=== PATIENT | female | born 2000 | race Caucasian/White ===

== ENCOUNTER 2025-04-19 20:39 | Emergency (ER) | payer BC, OTHER ==
--- OUTSIDE RECORDS SUMMARY | 2025-04-19 20:46 | XMS REPORT | Continuity of Care Document ---
Author Name Unknown Address [address] [facility] [address] [place] [address] [facility] Address [address] [facility] [address] [place] [address] Care Team Providers Care Clinical Nursing Director Name Role Phone Fartun Leo MD Primary Care Physician [phone] BETY DELGADO Attending Clinician Unavailable Bety Delgado PA-C Attending Clinician [phone] Unknown, Attending Attending Clinician Unavailab GARRETT Jeffers Attending Clinician Unavailable Fartun Leo MD Attending Clinician [phone] Nikki Raygoza MD Attending Clinician [phone] NIKKI RAYGOZA Attending Clinician Unavailable NIKKI RAYGOZA Attending Clinician Unavailable CARON DUKE Attending Clinician Unavailable CARON DUKE Attending Clinician Unavailable FARTUN LEO Attending Clinician Unavailable FARTUN LEO Attending Clinician Unavailable Danuta Roberson Attending Clinician Unavailable Jozef Agee Attending Clinician Unavailable Doctor Unassigned, Borden Attending Clinician U KATHLEEN Nixon Attending Clinician Unavailab Kathleen Navarro DO Attending Clinician [phone] Sarah Maynard RN Attending Clinician Unavailable NAINA POLLARD Attending Clinician Unavaila ble 2, [facility] Attending Clinician Unavailable Hiram Franks Attending Clinician [phone] Unknown, Attending Attending Clinician Unavailab HIRAM Velasquez Attending Clinician Unavailable ORION DEAN Attending Clinician Unavailable Orion Dean DO Attending Clinician [phone] 1, [facility] Room Attending Clinician UnavailErnie Marshall MD Attending Clinician + [phone] ERNIE IBRAHIM Attending Clinician UnavailRUTHIE Posada Attending Clinician Unavailable Ruthie Parker MD Attending Clinician [phone] YOLANDA NAM Attending Clinician Unavailable YOLANDA NAM Attending Clinician Unavailable Yolanda Nam MD Attending Clinician [phone] GUNNAR MARTÍNEZ Attending Clinician Unavailable Nyla Barker RN Attending Clinician Karen vailable DARCY BECKWITH Attending Clinician Unavailable Darcy Beckwith NP Attending Clinician [phone] BRIA LUAN Attending Clinician Unavailable ANIL ROBIN Attending Clinician Unavailable Robin PAC Anil S Attending Clinician [phone] MICHEAL TATUM Attending Clinician Unavailable Micheal Davis Attending Clinician [phone] Bria Luna MD Attending Clinician [phone] Lab, Ang - Db Attending Clinician Unavailable Marivel SAMANIEGO Attending Clinician Unavailable Marivel Sevilla Attending Clinician [phone] Gunnar Martínez PA-C Attending Clinician [phone] Danuta Roberson Admitting Clinician Unavailable ORION DEAN Admitting Clinician Unavailable RUTHIE PARKER Admitting Clinician Unavailable DARCY BECKWITH Admitting Clinician Unavailable MICHEAL TATUM Admitting Clinician Unavailable Marivel SAMANIEGO Admitting Clinician Unavailable Payers Payer Name Policy Type Policy Number Effective Date Expirati on Date Source [employer] [place] - OUT OF STATE [id number] 2018 00:00:00 [facility] [id number] 2024 00:00:00 [employer] [id number] 2021 00:00:00 2022 00:00:00 Problems Condition Name Condition Details Condition Category Status Onset Date Resolution Date Last Treatment Date Treating Clinician Comments Source PCOS (polycysti c ovarian syndrome) PCOS (polycysti c ovarian syndrome) Disease Active 2023-07 00:00: 00 [facility] Dysuria Dysuria Disease Active 2023-07 00:00: 00 [facility] Migraine Migraine Disease Active 03-16 00:00: 00 [facility] Asthma Asthma Disease Active 03-16 00:00: 00 [facility] Anxiety Anxiety Disease Active 03-16 00:00: 00 [facility] Depression Depression Disease Active 03-16 00:00: 00 [facility] Anemia Anemia Disease Active 03-16 00:00: 00 Overview: Formattin g of this note might be different from the original. as a child [facility] Class 3 severe obesity in adult Class 3 severe obesity in adult Disease Active 08-27 00:00: 00 [facility] Obesity (BMI 30-39.9) Obesity (BMI 30-39.9) Disease Active 08-27 00:00: 00 [facility] Amplified musculoske letal pain, diffuse Amplified musculoske letal pain, diffuse Disease Active 2015-07 00:00: 00 [facility] Syncope and collapse Syncope and collapse Disease Active 07-21 00:00: 00 [facility] Chest pain Chest pain Disease Active 07-21 00:00: 00 Overview: Formattin g of this note might be different from the original. ICD10 Diagnosis Term Art Preparator Utility [facility] Palpitatio n Palpitatio n Disease Active 07-21 00:00: 00 [facility] SOB (shortness of breath) SOB (shortness of breath) Disease Active 2012-0 1-18 00:00: 00 [facility] Missed Missed Disease Resolve d 2022-0 5-03 00:00: 00 2023-05-03 00:00:00 2023-05-03 14:47:09 [facility] Vaginal bleeding Vaginal bleeding Disease Resolve d 2022-0 5-03 00:00: 00 2022-11-12 00:00:00 2022-11-12 14:05:52 [facility] High-risk in first trimester High-risk in first trimester Disease Resolve d 2022-0 4-18 00:00: 00 2022-11-12 00:00:00 2022-11-12 14:05:58 [facility] Anxiety in in first trimester, antepartum Anxiety in in first trimester, antepartum Disease Resolve d 0 3-03 00:00: 00 2022-11-12 00:00:00 2022-11-12 14:05:55 [facility] Less than 8 weeks gestation of Less than 8 weeks gestation of Disease Resolve d 2022-0 3-03 00:00: 00 2022-11-12 00:00:00 2022-11-12 14:06:01 [facility] Obesity affecting in first trimester Obesity affecting in first trimester Disease Resolve d 0 3-03 00:00: 00 2022-11-12 00:00:00 2022-11-12 14:06:02 [facility] Allergies, Adverse Reactions, Alerts Allergy Name Allergy Type Status Severity Reaction(s) Onset Date Inactive Date Treating Clinician Comments Source diphenhy dramine DA Active [place] 12-21 00:00: 00 [facility] metoclop ramide DA Active [place] AGGRESIVE 12-21 00:00: 00 [facility] metoclop ramide DA Active [place] AGGR[place] 6- 00:00: 00 [facility] diphenhy dramine DA Active [place] 6- 00:00: 00 [facility] metoclop ramide DA Active [place] AGGRES[place] 09-20 00:00: 00 [facility] diphenhy dramine DA Active [place] 09-20 00:00: 00 [facility] Benadryl Allergy Deconges tant Propensi ty to adverse reaction s Active Other - See comments 07-26 00:00: 00 Kidney Failure [facility] BENADRYL ALLERGY DECONGES TANT DRUG Active Other-Cmnt 07-26 00:00: 00 [facility] Metoclop ramide Hcl Propensi ty to adverse reaction s Active Hallucinatio ns 03-12 00:00: 00 [facility] Metoclop ramide Propensi ty to adverse reaction s Active Unknown - See comments 03-12 00:00: 00 Other reaction( s): Hallucina tions [facility] METOCLOP RAMIDE DRUG INGREDI Active Unknown-Cmnt 03-12 00:00: 00 [facility] METOCLOP RAMIDE HCL DRUG INGREDI Active Hallucinates 03-12 00:00: 00 [facility] Family History Family Member Diagnosis Comments Start Date Stop Date Sourc e Natural brother [facility] brother ADHD [facility] Natural brother Other - see comments [facility] Natural [facility] Natural father High cholesterol [facility] Natural father Hypertension [facility] Maternal grandmother COPD (chronic obstructive pulmonary disease) [facility] Maternal grandmother Emphysema [facility] Natural mother Depression [facility] Natural mother Fibromyalgia [facility] Natural mother Other - see comments [facility] Natural mother Psychiatry [facility] Paternal uncle [facility] Natural sister [facility] Social History Social Habit Start Date Stop Date Quantity Comments Source ASSERTION 2022-08-04 00:00:00 [facility] Gender identity [facility] Alcoholic beverage intake 2024-08-29 00:00:00 2024-08-29 00:00:00 0 /d [facility] History of Social function 2024-06-08 00:00:00 2024-06-08 00:00:00 [facility] Alcohol intake 2023-05-27 00:00:00 2023-05-27 00:00:00 0 /d [facility] Tobacco use and exposure 2023-05-03 00:00:00 2023-05-03 00:00:00 Smokeless tobacco non-user [facility] Exposure to SARS-CoV-2 (event) 2022-11-09 00:00:00 2022-11-19 13:11:00 Not sure [facility] Sex assigned at 2002 00:00:00 2000 00:00:00 [facility] Smoking Status Start Date Stop Date Source Never smoked tobacco [facility] Medications Ordered Medication Name Filled Medication Name Start Date Stop Date Current Medication? Ordering Clinician Indication Dosage Frequency Signature (SIG) Comments Components Source dexamethaso ne (DECADRON) injection 10 mg 08-29 21:15: 00 08-29 20:25 :00 No [id number] 10mg 10 mg, Intramuscu lar, ONCE, 1 dose, On Tue08/29/24 at 1515, Routine [facility] bromphenira mine-pseudo ephedrine-D M (BROMFED DM) 2-30-10 mg/5 mL syrup 08-18 00:00: 00 Yes [id number] 5mL Take 5 mL by mouth 3 (three) times daily as needed for Cold symptoms. [facility] amoxicillin 500 mg tablet 08-18 00:00: 00 08-29 05:59 :00 No [id number] 500mg Take 1 tablet by mouth in the morning and 1 tablet in the evening. Do all this for 10 days. [facility] sulfamethox azole-trime thoprim (BACTRIM DS) 800-160 mg per tablet 2023-07 00:00: 00 06-16 05:59 :00 No 1{tbl} Take 1 tablet by mouth in the morning and 1 tablet in the evening. Do all this for 7 days. [facility] Nitrofurant oin&Nit. Macrocryst 100 mg capsule 2022-07 00:00: 00 05-14 05:59 :00 No [id number] 100mg Take 1 capsule by mouth in the morning and 1 capsule in the evening. Do all this for 7 days. [facility] methylPREDN ISolone (MEDROL, TATYANA,) 4 mg tablets 03-16 00:00: 00 05-03 00:00 :00 No [id number] Take by mouth SEE-INSTRU CTIONS. follow package directions [facility] promethazin e-dextromet horphan 6.25-15 mg/5 mL syrup 03-16 00:00: 00 03-27 04:59 :00 No [id number] 5mL Take 5 mL by mouth 4 (four) times daily for 10 days. [facility] busPIRone 5 mg tablet 02-25 11:06: 16 02-25 00:00 :00 No 5mg Take 1 tablet by mouth in the morning and 1 tablet in the evening. [facility] ARIPiprazol e 5 mg tablet 02-25 11:06: 13 02-25 00:00 :00 No 5mg Take 1 tablet by mouth in the morning. [facility] escitalopra m oxalate 10 mg tablet 02-25 11:05: 47 02-25 00:00 :00 No 10mg Take 1 tablet by mouth in the morning. [facility] azithromyci n 500 mg tablet 02-25 00:00: 00 05-03 00:00 :00 No [id number] 500mg Take 1 tablet by mouth in the morning. [facility] doxycycline hyclate 100 mg tablet 11-12 00:00: 00 02-25 00:00 :00 No [id number] 100mg Take 1 tablet by mouth in the morning and 1 tablet in the evening. [facility] miSOPROStoL (CYTOTEC) tablet 800 mcg 11-02 17:00: 00 11-02 16:03 :00 No [id number] 800ug [facility] ibuprofen 800 mg tablet 11-02 00:00: 00 02-25 00:00 :00 No [id number] 800mg Take 1 tablet by mouth every 8 (eight) hours as needed (Pain). [facility] miSOPROStoL 200 mcg tablet 11-02 00:00: 00 11-03 04:59 :00 No [id number] 800ug Take 4 tablets by mouth once now for 1 dose. [facility] acetaminoph en (TYLENOL) tablet 1,000 mg 10-31 00:30: 00 10-30 23:32 :00 No 1000mg 1,000 mg, Oral, ONCE, 1 dose, On 10/30/22 at 1930, Routine [facility] foLIC acid 1 mg tablet 10-20 00:00: 00 02-25 00:00 :00 No [id number] 1mg Take 1 tablet by mouth in the morning. [facility] ferrous sulfate (SLOW RELEASE IRON) 140 mg (45 mg iron) TbSR 10-20 00:00: 00 02-25 00:00 :00 No [id number] 1{tbl} Take 1 tablet by mouth in the morning. [facility] ARIPiprazol e 5 mg tablet 10-19 10:57: 32 Yes 5mg Take 1 tablet by mouth in the morning. [facility] escitalopra m oxalate 10 mg tablet 10-19 10:57: 32 Yes 10mg Take 1 tablet by mouth in the morning. [facility] busPIRone 5 mg tablet 18 10:57: 32 Yes 5mg Take 1 tablet by mouth in the morning and 1 tablet in the evening. [facility] ARIPiprazol e 5 mg tablet 09-16 16:03: 15 Yes 5mg Take 1 tablet by mouth in the morning. [facility] escitalopra m oxalate 10 mg tablet 09-16 16:03: 15 Yes 10mg Take 1 tablet by mouth in the morning. [facility] busPIRone 5 mg tablet 09-16 16:03: 15 Yes 5mg Take 1 tablet by mouth in the morning and 1 tablet in the evening. [facility] ARIPiprazol e (ABILIFY) 5 mg tablet 09-03 18:00: 45 Yes 5mg Take 5 mg by mouth in the morning. [facility] escitalopra m oxalate (LEXAPRO) 10 mg tablet 09-03 18:00: 44 Yes 10mg Take 10 mg by mouth in the morning. [facility] busPIRone 5 mg tablet 09-03 18:00: 44 Yes 5mg Take 5 mg by mouth in the morning and 5 mg in the evening. [facility] etonogestre L 68 mg implant 08-26 17:36: 27 08-26 00:00 :00 No 68mg 68 mg by Subdermal route once now. [facility] Lactobac no.41/Bifid obact no.7 (PROBIOTIC- 10 ORAL) 08-26 17:31: 57 08-26 00:00 :00 No 1{each} Take 1 Each by mouth. [facility] cetirizine 10 mg tablet 08-26 17:31: 51 08-26 00:00 :00 No 10mg Take 10 mg by mouth in the morning. [facility] hydrOXYzine 25 mg capsule 2021-07 00:00: 00 02-25 00:00 :00 No [facility] cefTRIAXone (ROCEPHIN) 1,000 mg in NaCl 0.9% (NS) 50 mL MINI-BAG 2021-07 17:00: 00 05-19 17:31 :00 No 1000mg 1,000 mg, IV Piggyback, ONCE, 1 dose, On Tue05/19/22 at 1100, Administer over 30 Minutes, 50 mL
Reas on for Anti-Infec tive: Documented Infection< br>Documen nicholas Infection Site: Urine
D uration of Therapy: 7 days [facility] NaCl 0.9% (NS) bolus infusion 1,000 mL 2021-07 17:00: 00 05-19 18:31 :00 No 1000mL at 999 mL/hr, 1,000 mL, IV Infusion, ONCE, 1 dose, On Tue05/19/22 at 1100, AJAY [facility] ketorolac (TORADOL) injection 30 mg 2021-07 16:30: 00 05-19 16:40 :00 No 30mg 30 mg, Slow IV Push, ONCE, 1 dose, On Tue05/19/22 at 1030, Routine [facility] ondansetron (ZOFRAN (PF)) injection 4 mg 2021-07 16:30: 00 05-19 16:40 :00 No 4mg 4 mg, Slow IV Push, ONCE, 1 dose, On Tue05/19/22 at 1030, [facility] phenazopyri dine 200 mg tablet 2021-07 00:00: 00 08-26 00:00 :00 No [id number] 200mg Take 1 tablet by mouth in the morning and 1 tablet at noon and 1 tablet in the evening. [facility] ondansetron 4 mg disintegrat ing tablet 2021-07 00:00: 00 08-26 00:00 :00 No [id number] 4mg Take 1 tablet by mouth every 8 (eight) hours as needed for Nausea and Vomiting (N/V). [facility] cefdinir 300 mg capsule 2021-07 00:00: 00 05-30 05:59 :00 No [id number] 300mg Take 1 capsule by mouth every 12 (twelve) hours for 10 days. [facility] Lactobac no.41/Bifid obact no.7 (PROBIOTIC- 10 ORAL) 2021-07 15:29: 14 Yes 1{each} Take 1 Each by mouth. [facility] cetirizine 10 mg tablet 2021-07 15:29: 14 Yes 10mg Take 10 mg by mouth in the morning. [facility] ARIPiprazol e (ABILIFY) 5 mg tablet 2021-07 15:29: 14 Yes 5mg Take 5 mg by mouth in the morning. [facility] escitalopra m oxalate (LEXAPRO) 10 mg tablet 2021-07 15:29: 14 Yes 10mg Take 10 mg by mouth in the morning. [facility] busPIRone 5 mg tablet 2021-07 15:29: 14 Yes 5mg Take 5 mg by mouth in the morning and 5 mg in the evening. [facility] cetirizine 10 mg tablet 2021-07 10:23: 35 Yes 10mg Take 10 mg by mouth in the morning. [facility] mupirocin 2 % ointment 2021-07 0 00:00: 00 08-26 00:00 :00 No [id number] Apply to area(s) 2 (two) times daily. Use until resolution of symptoms (normally 4-8 weeks) [facility] Lactobac no.41/Bifid obact no.7 (PROBIOTIC- 10 ORAL) 03-16 11:43: 39 Yes 1{each} Take 1 Each by mouth. [facility] norethindro ne-ethinyl estradiol-i christian 1 mg-20 mcg(24) /75 mg (4) per tablet 03-16 11:42: 54 03-16 00:00 :00 No 1{tbl} Take 1 tablet by mouth. [facility] mupirocin (BACTROBAN) 2 % ointment 03-16 11:42: 42 03-16 00:00 :00 No Apply to area(s). [facility] cetirizine (ZYRTEC) 10 mg tablet 03-16 11:42: 24 03-16 00:00 :00 No Take by mouth. [facility] acetaminoph en (TYLENOL) 325 mg tablet 03-16 11:42: 23 03-16 00:00 :00 No Take by mouth every 6 (six) hours as needed. [facility] FLUoxetine 40 mg capsule 03-16 11:22: 27 03-16 00:00 :00 No 40mg Take 40 mg by mouth daily. [facility] albuterol 90 mcg/actuati on inhaler 03-16 00:00: 00 08-26 00:00 :00 No [id number] 2{puff} Inhale 2 Puffs every 6 (six) hours as needed for Wheezing or Shortness of Breath. [facility] etonogestre L 68 mg implant 08-27 13:28: 01 Yes 68mg 68 mg by Subdermal route once now. [facility] albuterol 90 mcg/actuati on inhaler 08-27 00:00: 00 03-16 00:00 :00 No [id number] 2{puff} Inhale 2 Puffs every 6 (six) hours as needed for Wheezing or Shortness of Breath. [facility] traMADOL (ULTRAM) 50 mg tablet 2017-0716 00:00: 00 03-16 00:00 :00 No 50mg Take 1 tablet by mouth every 6 (six) hours as needed for Pain (scale 4-6). [facility] ibuprofen (MOTRIN IB) 200 mg tablet 3-05 00:00: 00 03-16 00:00 :00 No 400mg Take 2 tablets by mouth every 6 (six) hours as needed for Pain (scale 1-3) for up to 30 doses. [facility] traMADOL (ULTRAM) 50 mg tablet 03-12 00:00: 00 03-16 00:00 :00 No 50mg Take 1 tablet by mouth every 6 (six) hours as needed for Pain (scale 4-6). Bruno Arias PA-C / Beryl Melvin MD YUAN# [id number] [facility]# [id number] x [facility].# [id number] [facility]# [id number] [facility] Immunizations Ordered Immunization Name Filled Immunization Name Date Status Comments Source Influenza Virus Vaccine - Whole 2011-07-09 00:00:00 Completed Influenza Virus Vaccine - Whole 2010-04-24 00:00:00 Completed HEPATITIS A 2008-02-22 00:00:00 Completed DTaP, Unspecified Formulation 2007-02-07 00:00:00 Completed HEPATITIS A 2007-02-07 00:00:00 Completed Proquad (MMR/VARICELLA) 2007-02-07 00:00:00 Completed Pneumococcal 7 Conjugate, PCV7 (Prevnar7) 2007-02-07 00:00:00 Completed IPV 2007-02-07 00:00:00 Completed Hep B, Adol or Pedi Dosage 2005-03-11 00:00:00 Completed DTaP, Unspecified Formulation 2004-07-20 00:00:00 Completed [facility] HIB 4 Dose Schedule 2004-07-20 00:00:00 Completed MMR 2004-07-20 00:00:00 Completed IPV 2003-09-05 00:00:00 Completed Varicella (varivax)(chicken pox) 2003-09-05 00:00:00 Completed Hep B, Adol or Pedi Dosage 2003-06-14 00:00:00 Completed DTaP, Unspecified Formulation 2003-02-01 00:00:00 Completed HIB 4 Dose Schedule 2003-02-01 00:00:00 Completed Pneumococcal 7 Conjugate, PCV7 (Prevnar7) 2003-02-01 00:00:00 Completed DTaP, Unspecified Formulation 2002 00:00:00 Completed HIB 4 Dose Schedule 2002 00:00:00 Completed Pneumococcal 7 Conjugate, PCV7 (Prevnar7) 2002 00:00:00 Completed IPV 2002 00:00:00 Completed DTaP, Unspecified Formulation 2002 00:00:00 Completed HIB 4 Dose Schedule 2002 00:00:00 Completed Pneumococcal 7 Conjugate, PCV7 (Prevnar7) 2002 00:00:00 Completed IPV 2002 00:00:00 Completed Hep B, Adol or Pedi Dosage 2002 00:00:00 Completed Hep B, Adol or Pedi Dosage 2002 00:00:00 Completed Vital Signs Vital Name Observation Time Observation Value Prabhu short Systolic blood pressure 2024-08-29 19:58:00 127 mm[Hg] [facility] Diastolic blood pressure 2024-08-29 19:58:00 75 mm[Hg] [facility] Heart rate 2024-08-29 19:58:00 93 /min [facility] Body height 2024-08-29 19:58:00 162.6 cm [facility] Body weight 2024-08-29 19:58:00 107.775 kg [facility] BMI 2024-08-29 19:58:00 40.78 kg/m2 [facility] Oxygen saturation in Arterial blood by Pulse oximetry 2024-08-29 19:58:00 99 /min [facility] Systolic blood pressure 2024-08-18 22:20:00 115 mm[Hg] [facility] Diastolic blood pressure 2024-08-18 22:20:00 80 mm[Hg] [facility] Heart rate 2024-08-18 22:20:00 75 /min [facility] Body temperature 2024-08-18 22:20:00 37 Angela [facility] Respiratory rate 2024-08-18 22:20:00 18 /min [facility] Body weight 2024-08-18 22:20:00 107.639 kg [facility] BMI 2024-08-18 22:20:00 40.73 kg/m2 [facility] Oxygen saturation in Arterial blood by Pulse oximetry 2024-08-18 22:20:00 100 /min [facility] Systolic blood pressure 2023-05-27 23:11:00 137 mm[Hg] [facility] Diastolic blood pressure 2023-05-27 23:11:00 89 mm[Hg] [facility] Heart rate 2023-05-27 23:11:00 111 /min [facility] Body temperature 2023-05-27 23:11:00 37.11 Angela [facility] Respiratory rate 2023-05-27 23:11:00 16 /min [facility] Body height 2023-05-27 23:11:00 162.6 cm [facility] Body weight 2023-05-27 23:11:00 112.265 kg [facility] BMI 2023-05-27 23:11:00 42.48 kg/m2 [facility] Oxygen saturation in Arterial blood by Pulse oximetry 2023-05-27 23:11:00 96 /min [facility] Systolic blood pressure 2023-05-06 16:11:40 120 mm[Hg] [facility] Diastolic blood pressure 2023-05-06 16:11:40 75 mm[Hg] [facility] Heart rate 2023-05-06 16:11:40 92 /min [facility] Respiratory rate 2023-05-06 16:11:40 16 /min [facility] Oxygen saturation in Arterial blood by Pulse oximetry 2023-05-06 16:11:40 99 /min [facility] Body temperature 2023-05-06 14:45:48 36.78 [facility] Body weight 2023-05-06 14:42:00 112.946 kg [facility] BMI 2023-05-06 14:42:00 42.74 kg/m2 [facility] Systolic blood pressure 2023-05-03 19:12:00 133 mm[Hg] [facility] Diastolic blood pressure 2023-05-03 19:12:00 86 mm[Hg] [facility] Heart rate 2023-05-03 19:12:00 110 /min [facility] Body temperature 2023-05-03 19:12:00 36.67 Angela [facility] Body height 2023-05-03 19:12:00 162.6 cm [facility] Body weight 2023-05-03 19:12:00 113.218 kg [facility] BMI 2023-05-03 19:12:00 42.84 kg/m2 [facility] Systolic blood pressure 2023-03-16 17:33:00 116 mm[Hg] [facility] Diastolic blood pressure 2023-03-16 17:33:00 85 mm[Hg] [facility] Heart rate 2023-03-16 17:33:00 84 /min [facility] Body temperature 2023-03-16 17:33:00 36.94 Angela [facility] Respiratory rate 2023-03-16 17:33:00 18 /min [facility] Body height 2023-03-16 17:33:00 162.6 cm [facility] Body weight 2023-03-16 17:33:00 112.9 kg [facility] BMI 2023-03-16 17:33:00 42.72 kg/m2 [facility] Oxygen saturation in Arterial blood by Pulse oximetry 2023-03-16 17:33:00 99 /min [facility] Systolic blood pressure 2023-02-25 15:48:00 136 mm[Hg] [facility] Diastolic blood pressure 2023-02-25 15:48:00 85 mm[facility]Hg[facility] [facility] Heart rate 2023-02-25 15:48:00 77 /min [facility] Body temperature 2023-02-25 15:48:00 36.22 Angela [facility] Body height 2023-02-25 15:48:00 162.6 cm [facility] Body weight 2023-02-25 15:48:00 113.944 kg [facility] BMI 2023-02-25 15:48:00 43.12 kg/m2 [facility] Oxygen saturation in Arterial blood by Pulse oximetry 2023-02-25 15:48:00 97 /min [facility] Systolic blood pressure 2022-11-19 18:23:00 116 mm[Hg] [facility] Diastolic blood pressure 2022-11-19 18:23:00 75 mm[Hg] [facility] Heart rate 2022-11-19 18:23:00 94 /min [facility] Body temperature 2022-11-19 18:23:00 36.89 Angela [facility] Body height 2022-11-19 18:23:00 162.6 cm [facility] Body weight 2022-11-19 18:23:00 109.317 kg [facility] BMI 2022-11-19 18:23:00 41.37 kg/m2 [facility] Systolic blood pressure 2022-11-12 15:23:00 122 mm[Hg] [facility] Diastolic blood pressure 2022-11-12 15:23:00 82 mm[Hg] [facility] Heart rate 2022-11-12 15:23:00 90 /min [facility] Body temperature 2022-11-12 15:23:00 36.61 Angela [facility] Body height 2022-11-12 15:23:00 162.6 cm [facility] Body weight 2022-11-12 15:23:00 108.228 kg [facility] BMI 2022-11-12 15:23:00 40.96 kg/m2 [facility] Systolic blood pressure 2022-11-03 18:00:00 119 mm[Hg] [facility] Diastolic blood pressure 2022-11-03 18:00:00 77 mm[Hg] [facility] Heart rate 2022-11-03 18:00:00 93 /min [facility] Respiratory rate 2022-11-03 18:00:00 23 /min [facility] Oxygen saturation in Arterial blood by Pulse oximetry 2022-11-03 18:00:00 98 /min [facility] Body temperature 2022-11-03 14:07:00 37 Angela [facility] Body weight 2022-11-03 14:07:00 108.228 kg [facility] BMI 2022-11-03 14:07:00 40.96 kg/m2 [facility] Systolic blood pressure 2022-11-02 14:46:00 126 mm[Hg] [facility] Diastolic blood pressure 2022-11-02 14:46:00 85 mm[Hg] [facility] Heart rate 2022-11-02 14:46:00 85 /min [facility] Body temperature 2022-11-02 14:46:00 36.94 Angela [facility] Respiratory rate 2022-11-02 14:46:00 18 /min [facility] Body height 2022-11-02 14:46:00 162.6 cm [facility] Body weight 2022-11-02 14:46:00 109.317 kg [facility] BMI 2022-11-02 14:46:00 41.37 kg/m2 [facility] Systolic blood pressure 2022-10-31 04:00:00 132 mm[Hg] [facility] Diastolic blood pressure 2022-10-31 04:00:00 86 mm[Hg] [facility] Heart rate 2022-10-31 04:00:00 97 /min [facility] Respiratory rate 2022-10-31 04:00:00 22 /min [facility] Oxygen saturation in Arterial blood by Pulse oximetry 2022-10-31 04:00:00 99 /min [facility] Body temperature 2022-10-30 22:51:00 37.72 Angela [facility] Body height 2022-10-30 22:51:00 162.6 cm [facility] Body weight 2022-10-30 22:51:00 111.585 kg [facility] BMI 2022-10-30 22:51:00 42.23 kg/m2 [facility] Systolic blood pressure 2022-10-19 15:56:00 122 mm[Hg] [facility] Diastolic blood pressure 2022-10-19 15:56:00 80 mm[Hg] [facility] Heart rate 2022-10-19 15:56:00 58 /min [facility] Body temperature 2022-10-19 15:56:00 36.89 Angela [facility] Respiratory rate 2022-10-19 15:56:00 16 /min [facility] Body height 2022-10-19 15:56:00 162.6 cm [facility] Body weight 2022-10-19 15:56:00 111.131 kg [facility] BMI 2022-10-19 15:56:00 42.05 kg/m2 [facility] Systolic blood pressure 2022-09-16 21:01:00 122 mm[Hg] [place] [facility] Diastolic blood pressure 2022-09-16 21:01:00 82 mm[Hg] [facility] Heart rate 2022-09-16 21:01:00 102 /min [facility] Body temperature 2022-09-16 21:01:00 36.89 Angela [facility] Respiratory rate 2022-09-16 21:01:00 18 /min [facility] Body height 2022-09-16 21:01:00 163.8 cm [facility] Body weight 2022-09-16 21:01:00 110.043 kg [facility] BMI 2022-09-16 21:01:00 41.00 kg/m2 [facility] Systolic blood pressure 2022-09-03 21:15:00 122 mm[Hg] [facility] Diastolic blood pressure 2022-09-03 21:15:00 79 mm[Hg] [facility] Heart rate 2022-09-03 21:15:00 93 /min [facility] Body temperature 2022-09-03 21:15:00 36.72 Angela [facility] Respiratory rate 2022-09-03 21:15:00 18 /min [facility] Body height 2022-09-03 21:15:00 162.6 cm [facility] Body weight 2022-09-03 21:15:00 110.224 kg [facility] BMI 2022-09-03 21:15:00 41.71 kg/m2 [facility] Systolic blood pressure 2022-08-27 06:06:58 123 mm[Hg] [facility] Diastolic blood pressure 2022-08-27 06:06:58 70 mm[Hg] [facility] Heart rate 2022-08-27 06:06:58 89 /min [facility] Body temperature 2022-08-27 06:06:58 36.89 Angela [facility] Respiratory rate 2022-08-27 06:06:58 16 /min [facility] Oxygen saturation in Arterial blood by Pulse oximetry 2022-08-27 06:06:58 99 /min [facility] Body height 2022-08-26 23:26:00 162.6 cm [facility] 2022-08-26 23:26:00 104.327 kg [facility] BMI 2022-08-26 23:26:00 39.48 kg/m2 [facility] Systolic blood pressure 2022-07-03 07:21:00 148 mm[Hg] [facility] Diastolic blood pressure 2022-07-03 07:21:00 94 mm[Hg] [facility] Heart rate 2022-07-03 07:21:00 96 /min [facility] Body temperature 2022-07-03 07:21:00 36.78 Angela [facility] Respiratory rate 2022-07-03 07:21:00 18 /min [facility] Body height 2022-07-03 07:21:00 162.6 cm [facility] Body weight 2022-07-03 07:21:00 108.41 kg [facility] BMI 2022-07-03 07:21:00 41.02 kg/m2 [facility] Oxygen saturation in Arterial blood by Pulse oximetry 2022-07-03 07:21:00 100 /min [facility] Systolic blood pressure 2022-05-19 15:56:00 134 mm[Hg] [facility] Diastolic blood pressure 2022-05-19 15:56:00 96 mm[Hg] [facility] Heart rate 2022-05-19 15:56:00 110 /min [facility] Body temperature 2022-05-19 15:56:00 37.06 Angela [facility] Respiratory rate 2022-05-19 15:56:00 18 /min [facility] Body weight 2022-05-19 15:56:00 106.142 kg [facility] Oxygen saturation in Arterial blood by Pulse oximetry 2022-05-19 15:56:00 99 /min [facility] Systolic blood pressure 2022-05-04 20:02:00 118 mm[Hg] [facility] Diastolic blood pressure 2022-05-04 20:02:00 81 mm[Hg] [facility] Heart rate 2022-05-04 20:02:00 97 /min [facility] Body temperature 2022-05-04 20:02:00 36.72 Angela [facility] Respiratory rate 2022-05-04 20:02:00 18 /min [facility] Body height 2022-05-04 20:02:00 162.6 cm [facility] Body weight 2022-05-04 20:02:00 106.142 kg [facility] BMI 2022-05-04 20:02:00 40.17 kg/m2 [facility] Systolic blood pressure 2022-04-12 15:17:00 123 mm[Hg] [facility] Diastolic blood pressure 2022-04-12 15:17:00 85 mm[Hg] [facility] Heart rate 2022-04-12 15:17:00 81 /min [facility] Body temperature 2022-04-12 15:17:00 36.78 Angela [facility] Body height 2022-04-12 15:17:00 162.6 cm [facility] Body weight 2022-04-12 15:17:00 110.224 kg [facility] BMI 2022-04-12 15:17:00 41.71 kg/m2 [facility] Oxygen saturation in Arterial blood by Pulse oximetry 2022-04-12 15:17:00 96 /min [facility] Systolic blood pressure 2022-03-16 15:53:00 135 mm[Hg] [facility] Diastolic blood pressure 2022-03-16 15:53:00 82 mm[Hg] [facility] Heart rate 2022-03-16 15:53:00 97 /min [facility] Body temperature 2022-03-16 15:53:00 36.72 Angela [facility] Body height 2022-03-16 15:53:00 163.8 cm [facility] Body weight 2022-03-16 15:53:00 104.781 kg [facility] BMI 2022-03-16 15:53:00 39.04 kg/m2 [facility] Oxygen saturation in Arterial blood by Pulse oximetry 2022-03-16 15:53:00 100 /min [facility] Systolic blood pressure 2024-08-18 22:20:00 115 mm[Hg] [facility] Diastolic blood pressure 2024-08-18 22:20:00 80 mm[Hg] [facility] Heart rate 2024-08-18 22:20:00 75 /min [facility] Body temperature 2024-08-18 22:20:00 37 Angela [facility] Respiratory rate 2024-08-18 22:20:00 18 /min [facility] Body weight 2024-08-18 22:20:00 107.639 kg [facility] BMI 2024-08-18 22:20:00 40.73 kg/m2 [facility] Oxygen saturation in Arterial blood by Pulse oximetry 2024-08-18 22:20:00 100 /min [facility] Body height 2024-06-08 21:21:00 162.6 cm [facility] Procedures Procedure Date / Time Performed Performing Clinician Source POCT MOLECULAR STREP 2024-08-18 22:20:00 Unknown, Atte nding [facility] URINE CULTURE 2024-06-08 21:25:00 Nikki Raygoza [facility] URINALYSIS 2024-06-08 21:25:00 Nikki Raygoza [facility] [id number] 2023-12-22 00:00:00 DAVBE01 [facility] [id number] 2023-12-22 00:00:00 DAVBE01 [facility] [id number] 2023-12-22 00:00:00 DAVBE01 [facility] [id number] 2023-12-22 00:00:00 DAVBE01 [facility] [id number] 2023-12-22 00:00:[address] [id number] 2023-12-22 00:00:[address] INSURANCE CORRESPONDENCE 2023-06-28 06:01:00 Doc ana Unassigned, Borden [facility] NOTICE OF PRIVACY PRACTICES 2023-05-27 23:08:09 Doctor Unassigned, Borden [facility] CONSENT/REFUSAL FOR DIAGNOSIS AND TREATMENT 2023-05-27 23:07:04 Doctor Unassigned, Borden [facility] TOTAL BETA HCG ASSAY 2023-05-06 14:56:00 Mark Anthony Atkins [facility] URINALYSIS 2023-05-06 14:56:00 [facility]US[facility] FOR [facility]AG[facility]IS AND TREATMENT 2023-05-06 14:36:18 Doctor Unassigned, Borden [facility] GC & CHLAMYDIA AMPLIFIED ASSAY 2023-05-03 20:01:00 Adum, Caron Guzman [facility] POCT TEST 2023-05-03 00:00:00 Adum, Caron Guzman [facility] POCT URINALYSIS W/O SPECIFIC GRAVITY 2023-05-03 00:00:00 Adum, Caron Guzman [facility] POCT SARS-COV-2 ANTIGEN (BINAX NOW) 2023-03-16 17:55:00 Hiram Perla [facility] POCT MOLECULAR FLU 2023-03-16 17:39:00 Unknown, Attend ing [facility] ASSIGNMENT OF BENEFITS 2023-03-16 17:25:02 Cheyenne coreas Unassigned, Borden [facility] US OB TRANSVAGINAL 2022-11-12 19:02:06 Adum, Caron Guzman [facility] ULTRASOUND 2022-11-12 05:01:00 Artemio perez Unassigned, Borden [facility] HB ABO GROUPING 2022-11-03 17:24:00 Adum, Caron Guzman [facility] FIRST TRIMESTER LESS THAN 14 WEEKS WITH TRANSVAGINAL 2022-11-03 15:07:[address] [facility] [place] [place] CBC WITH DIFF 2022-11-03 14:37:00 Singer [facility] CONSENT/REFUSAL FOR DIAGNOSIS AND TREATMENT 2022-11-03 14:00:40 Doctor Unassigned, Borden [facility] DISCLOSURE AND CONSENT, MEDICAL AND SURGICAL PROCEDURES 2022-11-02 05:01:00 Doctor Unassigned, Borden [facility] FIRST TRIMESTER LESS THAN 14 WEEKS WITH TRANSVAGINAL 2022-10-31 02:42:45 Ruthie Parker [facility] LIPASE 2022-10-30 23:34:00 Ruthie Parker [facility] COMP. METABOLIC PANEL (95623) 2022-10-30 23:34:00 Ruthie Parker [facility] TOTAL BETA HCG ASSAY 2022-10-30 23:34:00 Sherri Parker i [facility] CBC WITH DIFF 2022-10-30 23:34:00 Ruthie Parker [facility] URINALYSIS 2022-10-30 23:34:00 Ruthie Parker [facility] CONSENT/REFUSAL FOR DIAGNOSIS AND TREATMENT 2022-10-30 22:37:04 Doctor Unassigned, Borden [facility] SCANNED LAB RESULTS 2022-10-21 05:01:00 Doctor Jaun yanesgnlia, Borden [facility] <14 WEEKS US LIMITED 2022-10-20 14:46:24 Adum, Caron Guzman [facility] POCT URINALYSIS W/O SPECIFIC GRAVITY 2022-10-19 00:00:00 Adum, Caron Guzman [facility] FIRST TRIMESTER ULTRASOUND 2022-10-04 15:36:00 Adum, Caron Guzman [facility] POCT URINALYSIS W/O SPECIFIC GRAVITY 2022-09-16 21:12:00 Adum, Caron Guzman [facility] ULTRASOUND 2022-09-16 05:01:00 Doc tor Unassigned, Borden [facility] HCV ANTIBODY 2022-09-06 17:13:00 Adum, Caron Guzman [facility] HIV 1/2 AG-AB WITH REFLEX 2022-09-06 17:13:00 Adum, Joellen Guzman [facility] URINE DRUG (IMMUNOASSAY) - COMPREHENSIVE DRUG SCREEN 2022-09-03 22:27:00 Adum, Caron Guzman [facility] URINE CULTURE 2022-09-03 22:27:00 Adum, Caron Guzman [facility] TRICHOMONAS AMPLIFIED ASSAY 2022-09-03 22:27:00 Adum, Caron Guzman [facility] US OB TRANSVAGINAL 2022-09-03 22:19:28 Adum, Caron Guzman [facility] PATIENT FINANCIAL POLICY 2022-09-03 20:13:11 Doctor Unassigned, Borden [facility] POCT URINALYSIS W/O SPECIFIC GRAVITY 2022-09-03 00:00:00 Adum, Caron Guzman [facility] HB ABO GROUPING 2022-08-27 04:35:00 Darcy Beckwith [facility] TOTAL BETA HCG ASSAY 2022-08-27 03:02:00 Tyesha Beckwith [facility] FIRST TRIMESTER LESS THAN 14 WEEKS WITH TRANSVAGINAL 2022-08-27 01:44:55 Darcy Beckwith [facility] POCT TEST 2022-08-27 00:06:00 Darcy Beckwith [facility] URINALYSIS 2022-08-27 00:05:00 Darcy Bekcwith [facility] CONSENT/REFUSAL FOR DIAGNOSIS AND TREATMENT 2022-08-26 23:16:43 Doctor Unassigned, Borden [facility] URINALYSIS 2022-07-03 07:38:00 Anil Robin [facility] CONSENT/REFUSAL FOR DIAGNOSIS AND TREATMENT 2022-07-03 07:08:48 Doctor Unassigned, Borden [facility] CT ABDOMEN PELVIS WO CONTRAST 2022-05-19 16:37:52 Micheal Tatum [facility] COMP. METABOLIC PANEL (19704) 2022-05-19 16:29:00 Micheal Tatum [facility] CBC WITH DIFF 2022-05-19 16:29:00 Micheal Tatum [facility] POCT TEST 2022-05-19 16:03:00 Brinda Tatum [facility] URINALYSIS 2022-05-19 16:02:00 Micheal Tatum [facility] CONSENT/REFUSAL FOR DIAGNOSIS AND TREATMENT 2022-05-19 15:52:20 Doctor Unassigned, Borden [facility] Encounters Start Date/Time End Date/Time Encounter Type Admission Type Attending [facility] Facility Care Department Encounter ID Source 2021-04-30 17:46:23 Emergency [facility] [id number] [facility] 2024-08-29 14:00:00 2024-08-29 14:28:17 Outpatient BETY ARITA [facility] [id number] [facility] 2024-08-29 14:00:00 2024-08-29 14:28:17 Office Visit B[facility] 1.2.840.114 350.1.13.10 4.2.7.2.686 [id number] [facility] 2024-08-18 16:40:00 2024-08-18 16:40:00 Urgent Care Bety Delgado Unknown, Attending [facility] 1.2.840.114 350.1.13.10 4.2.7.2.686 [id number] [facility] 2024-08-18 16:40:00 2024-08-18 16:35:12 Outpatient BETY ARITA [facility] [id number] [facility] 2024-08-18 00:00:00 2024-08-18 00:00:00 Travel 1.2.840.1 [id number] 3.104.2.7 .3.325888 .8 1.2.840.114 350.1.13.10 4.2.7.3.698 [id number] [facility] 2024-06-14 00:00:00 2024-06-20 14:35:57 Telephone KatherinejasenFartun 1.2.840.1 [id number] 3.104.2.7 .3.589808 .[id number] [facility] 2024-06-13 00:00:00 2024-06-13 16:12:00 Telephone StephaniFanshantel 1.2.840.1 [id number] 3.104.2.7 .3.546229 .[id number] [facility] 2024-06-08 16:00:00 2024-06-08 16:19:07 Outpatient R NIKKI RAYGOZA FAKEHA [facility] [id number] [facility] 2024-06-08 16:00:00 2024-06-08 16:19:07 Office Visit Stephani Nikki 1.2.840.1 [id number] 3.104.2.7 .3.396646 .[id number] [facility] 2024-06-08 00:00:00 2024-06-08 00:00:00 Travel 1.2.840.1 [id number] 3.104.2.7 .3.150994 .8 1.2.840.114 350.1.13.10 4.2.7.3.698 [id number] [facility] 2023-12-22 01:24:00 2023-12-23 19:50:00 Inpatient Danuta Roque [facility] OB [id number] [facility] 2023-12-09 01:19:00 2023-12-09 01:19:00 Outpatient Jozef Agee [facility] [id number] [facility] 2023-12-08 15:53:00 2023-12-08 15:53:00 Outpatient Danuta Roque [facility] [id number] [facility] 2023-12-05 21:43:00 2023-12-05 22:48:00 Emergency Danuta Kramer [facility] LAYLA [id number] [facility] 2023-11-29 11:20:00 2023-11-29 11:20:00 Outpatient FARTUN VINES [facility] [id number] [facility] 2023-10-30 10:15:00 2023-10-30 12:01:00 Emergency Danuta Kramer [facility] LAYLA [id number] [facility] 2023-09-21 09:51:00 2023-09-21 11:02:00 Emergency Danuta Kramer [facility] LAYLA [id number] [facility] 2023-08-17 08:09:00 2023-08-17 08:09:00 Outpatient Danuta Roque [facility] [id number] 65 [facility] 2023-06-28 00:00:00 2023-06-28 00:00:00 Letter (Out) [facility] .0.114 350.1.13.10 4.2.7.2.686 [id number] [facility] 2023-06-28 00:00:00 2023-06-28 00:00:00 Orders Only Doctor Unassigned, Borden [facility] .840.114 350.1.13.10 4.2.7.2.686 [id number] [facility] 2023-06-15 00:00:00 2023-06-15 00:00:00 Telephone Fartun [facility] 1.840.114 350.1.13.10 4.2.7.2.686 [id number] [facility] 2023-05-31 14:00:00 2023-05-31 14:00:00 Outpatient R CHRISTOFERPALLAVICLARKCARON [facility] [id number] [facility] 2023-05-27 17:12:00 2023-05-27 17:35:00 Emergency X KATHLEEN ATKINS [facility] ERT [id number] [facility] 2023-05-27 17:12:00 2023-05-27 17:35:00 Emergency Kathleen Atkins [facility] 1..840.114 350.1.13.10 4.2.7.2.686 [id number] [facility] 2023-05-27 00:00:00 2023-05-27 00:00:00 Telephone Sarah Maynard [facility] 1..840.114 350.1.13.10 4.2.7.2.686 [id number] [facility] 2023-05-23 09:45:00 2023-05-23 09:45:00 Outpatient R NAINA POLLARD [facility] [id number] [facility] 2023-05-06 09:43:00 2023-05-06 11:13:00 Emergency KATHLEEN TYLER [facility] ERT [id number] [facility] 2023-05-06 09:43:00 2023-05-06 11:13:00 Emergency Kathleen Atkins [facility] 1..840.114 350.1.13.10 4.2.7.2.686 [id number] [facility] 2023-05-03 15:15:00 2023-05-03 15:30:11 Outpatient R CARON DUKE [facility] [id number] [facility] 2023-05-03 15:15:00 2023-05-03 15:30:00 Blow Off Worker Visit 2, Adc Lab Adum, Caron Guzman [facility] 1.2840.114 350.1.13.10 4.2.7.2.686 [id number] [facility] 2023-05-03 14:00:00 2023-05-03 15:03:58 Office Visit Adum, Caron Guzman [facility] 1.2840.114 350.1.13.10 4.2.7.2.686 [id number] [facility] 2023-04-30 00:00:00 2023-04-30 00:00:00 Patient Secure Msg Doctor Unassigned, Borden [facility] 1.2840.114 350.1.13.10 4.2.7.2.686 [id number] [facility] 2023-04-26 00:00:00 2023-04-26 00:00:00 Telephone Fartun Leo [facility] 1.20.114 350.1.13.10 4.2.7.2.686 [id number] [facility] 2023-03-17 00:00:00 2023-03-17 00:00:00 Telephone Hiram Perla [facility] 1.2840.114 350.1.13.10 4.2.7.2.686 [id number] [facility] 2023-03-16 12:20:00 2023-03-16 12:40:00 Urgent Care Hiram Perla Unknown, Attending [facility] 1.2840.114 350.1.13.10 4.2.7.2.686 [id number] [facility] 2023-03-16 12:20:00 2023-03-16 12:20:00 Outpatient R HIRAM PERLA [facility] [id number] [facility] 2023-03-16 00:00:00 2023-03-16 00:00:00 Orders Only Doctor Unassigned, Borden [facility] 1.0.114 350.1.13.10 4.2.7.2.686 [id number] [facility] 2023-02-25 10:40:00 2023-02-25 11:13:28 [facility] [id number] [facility] 2023-02-25 10:40:00 2023-02-25 11:13:28 [facility] 1.114 350.1.13.10 4.2.7.2.686 [id number] [facility] 2023-02-25 00:00:00 2023-02-25 00:00:00 Letter (Out) [facility] 1.114 350.1.13.10 4.2.7.2.686 [id number] [facility] 2023-02-24 00:00:00 2023-02-24 00:00:00 Telephone [facility] 1.114 350.1.13.10 4.2.7.2.686 [id number] [facility] 2022-11-19 13:30:00 2022-11-19 14:05:03 [facility] 1.114 350.1.13.10 4.2.7.2.686 [id number] [facility] 2022-11-19 13:30:00 2022-11-19 14:05:03 Outpatient R ADCARON OLIVO [facility] [id number] [facility] 2022-11-19 00:00:00 2022-11-19 00:00:00 Letter (Out) AdCaron olivo [facility] [id number] [facility] 2022-11-15 00:00:00 2022-11-15 00:00:00 Telephone Adum, Caron Guzman [place] [facility] 1.2.840.114 350.1.13.10 4.2.7.2.686 [id number] 134 [id number] [facility] 2022-11-12 10:30:00 2022-11-12 11:37:11 Outpatient R ADCARON OLIVO [facility] [id number] [facility] 2022-11-12 10:30:00 2022-11-12 11:37:11 Office Visit AdCaron olivo [facility] 1.2.840.114 350.1.13.10 4.2.7.2.686 [id number] 134 [id number] [facility] 2022-11-12 00:00:00 2022-11-12 00:00:00 Orders Only Doctor Unassigned, Borden [facility] 1.284.114 350.1.13.10 4.2.7.2.686 [id number] [id number] [facility] 2022-11-03 09:09:00 2022-11-03 14:03:00 Emergency X ORION [facility] [id number] [facility] 2022-11-03 09:09:00 2022-11-03 14:03:00 Emergency Orion Dean [facility] 1.2.840.114 350.1.13.10 4.2.7.2.686 [id number] 084 [id number] [facility] 2022-11-02 09:30:00 2022-11-02 11:20:05 Outpatient R ADCARON OLIVO [facility] [id number] [facility] 2022-11-02 09:30:00 2022-11-02 11:20:05 Office Visit AdCaron olivo [facility] 1.2.840.114 350.1.13.10 4.2.7.2.686 [id number] 134 [id number] [facility] 2022-11-02 00:00:00 2022-11-02 00:00:00 [facility] 1.2.840.114 350.1.13.10 4.2.7.2.686 [id number] 083 [id number] [facility] 2022-11-02 00:00:00 2022-11-02 00:00:00 Orders Only Doctor Unassigned, Borden [facility] 1.2.840.114 350.1.13.10 4.2.7.2.686 [id number] 009 [id number] [facility] 2022-11-02 00:00:00 2022-11-02 00:00:00 Letter (Out) AdCaron olivo [facility] 1.2.840.114 350.1.13.10 4.2.7.2.686 [id number] 134 [id number] [facility] 2022-11-02 00:00:00 2022-11-02 00:00:00 Telephone AdCaron olivo [facility] 1.2.840.114 350.1.13.10 4.2.7.2.686 [id number] 134 [id number] [facility] 2022-11-01 14:00:00 2022-11-01 14:00:00 Outpatient P [facility] [id number] [facility] 2022-11-01 10:45:00 2022-11-01 11:47:57 Blow Off Worker Visit 1, [facility] Usg Room [facility] 1..114 350.1.13.10 4.2.7.2.686 [id number] [facility] 2022-11-01 10:45:00 2022-11-01 10:45:00 Outpatient P ALEXANDRIA ERNIE [facility] [id number] [facility] 2022-11-01 00:00:00 2022-11-01 00:00:00 Telephone Adum, Caron Guzman [facility] PROFESSIO [facility] 1..114 350.1.13.10 4.2.7.2.686 [id number] 134 [id number] [facility] 2022-11-01 00:00:00 2022-11-01 00:00:00 Letter (Out) [facility] 1..114 350.1.13.10 4.2.7.2.686 [id number] [facility] 2022-10-30 18:02:00 2022-10-30 23:06:00 Emergency X RUTHIE PARKER [facility] ERT [id number] [facility] 2022-10-30 18:02:00 2022-10-30 23:06:00 Emergency Ruthie Parker [facility] 1..114 350.1.13.10 4.2.7.2.686 [id number] 084 [id number] [facility] 2022-10-28 00:00:00 2022-10-28 00:00:00 Patient Secure Msg Doctor Unassigned, Borden [facility] 1.2.840.114 350.1.13.10 4.2.7.2.686 [id number] 134 [id number] [facility] 2022-10-27 00:00:00 2022-10-27 00:00:00 Telephone Adum, Caron Guzman [facility] 1.2.840.114 350.1.13.10 4.2.7.2.686 [id number] 134 [id number] [facility] 2022-10-26 00:00:00 2022-10-26 00:00:00 Telephone Adum, Caron Guzman [facility] 1.2.840.114 350.1.13.10 4.2.7.2.686 [id number] 134 [id number] [facility] 2022-10-21 10:30:00 2022-10-21 10:45:00 Blow Off Worker Visit 2, Adc Lab Adum, Caron Guzman [facility] 1.2.840.114 350.1.13.10 4.2.7.2.686 [id number] 353 [id number] [facility] 2022-10-21 10:30:00 2022-10-21 10:33:59 Outpatient R ADPALLAVI, CARON [facility] [id number] [facility] 2022-10-21 00:00:00 2022-10-21 00:00:00 Orders Only Doctor Unassigned, Borden [facility] 1.2.840.114 350.1.13.10 4.2.7.2.686 [id number] [id number] [facility] 2022-10-20 00:00:00 2022-10-20 00:00:00 Telephone Adum, Caron Guzman [facility] 1.2.840.114 350.1.13.10 4.2.7.2.686 [id number] 134 [id number] [facility] 2022-10-19 11:00:00 2022-10-19 12:04:57 Outpatient R ADCARON OLIVO [facility] [id number] [facility] 2022-10-19 11:00:00 2022-10-19 12:04:57 Routine Visit Ad [facility] 1..114 350.1.13.10 4.2.7.2.686 [id number] 134 [id number] [facility] 2022-10-04 10:00:00 2022-10-04 11:02:50 Outpatient P YOLANDA NAM [facility] [id number] [facility] 2022-10-04 10:00:00 2022-10-04 11:02:50 Blow Off Worker Visit 1, [facility] Us Room [facility] 1..114 350.1.13.10 4.2.7.2.686 [id number] [facility] 2022-10-04 10:00:00 2022-10-04 10:00:00 Outpatient R GUNNAR MARTÍNEZ [facility] [id number] [facility] 2022-10-04 00:00:00 2022-10-04 00:00:00 [facility]..114 350.1.13.10 4.2.7.2.686 [id number] [facility] 2022-09-16 15:30:00 2022-09-16 16:47:20 [facility] [id number] [facility] 2022-09-16 15:30:00 2022-09-16 16:47:20 Routine Visit Ad, [facility] 1.84.114 350.1.13.10 4.2.7.2.686 [id number] 134 [id number] [facility] 2022-09-16 00:00:00 2022-09-16 00:00:00 Nurse Triage Nyla Sorto [facility] 1.2.840.114 350.1.13.10 4.2.7.2.686 [id number] 019 [id number] [facility] 2022-09-16 00:00:00 2022-09-16 00:00:00 Orders Only Doctor Unassigned, Borden [facility] 1.2.840.114 350.1.13.10 4.2.7.2.686 [id number] [id number] [facility] 2022-09-15 00:00:00 2022-09-15 00:00:00 Telephone AdumCaron [facility] 1.2.840.114 350.1.13.10 4.2.7.2.686 [id number] 134 [id number] [facility] 2022-09-13 08:30:00 2022-09-13 08:45:00 Blow Off Worker Visit 2, [facility] 1.2.840.114 350.1.13.10 4.2.7.2.686 [id number] [facility] 2022-09-13 08:30:00 2022-09-13 08:30:00 [facility] [id number] [facility] 2022-09-08 00:00:00 2022-09-08 00:00:00 Case Management AdCaron olivo [facility] 1.2.840.114 350.1.13.10 4.2.7.2.686 [id number] 134 [id number] [facility] 2022-09-08 00:00:00 2022-09-08 00:00:00 Telephone AdumCaron [facility] 1.2.840.114 350.1.13.10 4.2.7.2.686 [id number] 134 [id number] [facility] 2022-09-06 10:15:00 2022-09-06 10:30:00 Blow Off Worker Visit 2, Adc Lab Adum, Caron Guzman [facility] 1.2.840.114 350.1.13.10 4.2.7.2.686 [id number] [facility] 2022-09-06 10:15:00 2022-09-06 10:15:00 Outpatient R BK [facility] [id number] [facility] 2022-09-03 14:30:00 2022-09-03 16:17:12 Outpatient R BK [facility] [id number] [facility] 2022-09-03 14:30:00 2022-09-03 16:17:12 Initial Visit Adpallavi, Caron Guzman [facility] 1.2840.114 350.1.13.10 4.2.7.2.686 [id number] 134 [id number] [facility] 2022-09-03 00:00:00 2022-09-03 00:00:00 Orders Only Doctor Unassigned, Borden [facility] 1.2840.114 350.1.13.10 4.2.7.2.686 [id number] [id number] [facility] 2022-09-03 00:00:00 2022-09-03 00:00:00 Letter (Out) Adpallavi, Caron Guzman [facility] 1.2.840.114 350.1.13.10 4.2.7.2.686 [id number] 134 [id number] [facility] 2022-08-26 17:27:00 2022-08-27 00:12:00 Emergency X DARCY BECKWITH [facility] ERT [id number] [facility] 2022-08-26 17:27:00 2022-08-27 00:12:00 Emergency Darcy Beckwith [facility] 1.84.114 350.1.13.10 4.2.7.2.686 [id number] [facility] 2022-07-12 08:00:00 2022-07-12 08:00:00 Outpatient R BRIA LUNA [facility] [id number] [facility] 2022-07-03 01:24:00 2022-07-03 03:10:00 Emergency X ANIL ROBIN [facility] ERT [id number] [facility] 2022-07-03 01:24:00 2022-07-03 03:10:00 Emergency Anil Robin [facility] 1.84.114 350.1.13.10 4.2.7.2.686 [id number] [facility] 2022-05-19 09:59:00 2022-05-19 12:32:00 Emergency X MICHEAL TATUM [facility] ERT [id number] [facility] 2022-05-19 09:59:00 2022-05-19 12:32:00 Emergency Micheal Tatum [facility] 1.84.114 350.1.13.10 4.2.7.2.686 [id number] [id number] [facility] 2022-05-04 15:00:00 2022-05-04 15:46:37 Outpatient R BRIA LUNA [facility] [id number] [facility] 2022-05-04 15:00:00 2022-05-04 15:46:37 Office Visit Bria Luna [facility] PROFESSIO [facility] 1.84.114 350.1.13.10 4.2.7.2.686 [id number] 134 [id number] [facility] 2022-05-04 00:00:00 2022-05-04 00:00:00 Telephone Bria Luna [facility] 1.2.840.114 350.1.13.10 4.2.7.2.686 [id number] 134 [id number] [facility] 2022-04-12 09:40:00 2022-04-12 10:41:00 Outpatient R FELIPA [facility] [id number] [facility] 2022-04-12 09:40:00 2022-04-12 10:41:00 Outpatient Dianna LEO [facility] [id number] [facility] 2022-04-12 09:40:00 2022-04-12 10:41:00 Office Visit Felipa [facility] 1.2.840.114 350.1.13.10 4.2.7.2.686 [id number] [id number] [facility] 2022-04-10 00:00:00 2022-04-10 00:00:00 Patient Secure Msg Doctor Unassigned, Borden [facility] 1.2.840.114 350.1.13.10 4.2.7.2.686 [id number] [facility] 2022-04-06 12:30:00 2022-04-06 12:45:00 Blow Off Worker Visit Lab, Jason Leo [facility] 1.2.840.114 350.1.13.10 4.2.7.2.686 [id number] [facility] 2022-04-06 12:30:00 2022-04-06 12:30:00 [facility] [id number] [facility] 2022-03-16 10:40:00 2022-03-16 11:50:31 Outpatient R FELIPA [facility] [id number] [facility] 2022-03-16 10:40:00 2022-03-16 11:50:31 Office Visit Felipa [facility] SUNNI?MAYELA SALDIVAR [facility] 1..84.114 350.1.13.10 4.2.7.2.686 [id number] 044 [id number] [facility] 2022-03-12 00:00:00 2022-03-12 00:00:00 Telephone Felipa [facility] SUNNI?MAYELA SALDIVAR [facility] 1.84.114 350.1.13.10 4.2.7.2.686 [id number] [facility] 2022-02-08 15:50:00 2022-02-08 20:05:00 Emergency X Marivel SAMANIEGO [facility] ERT [id number] [facility] 2022-02-08 15:50:00 2022-02-08 20:05:00 Emergency Marivel Samaniego [facility] 1.840.114 350.1.13.10 4.2.7.2.686 [id number] [facility] 2022-02-08 15:50:00 2022-02-08 20:05:00 Emergency X Marivel SAMANIEGO [facility] ERT [id number] [facility] 2021-08-27 13:30:00 2021-08-27 13:30:00 Outpatient GUNNAR BOOTH [facility] [id number] [facility] 2021-03-16 13:30:00 2021-03-16 13:30:00 Outpatient BRIA WESTON [facility] [id number] [facility] 2021-01-21 00:00:00 2021-01-21 00:00:00 [facility] 1..840.114 350.1.13.10 4.2.7.2.686 [id number] 134 [id number] [facility] 2020-08-27 13:16:13 2020-08-27 14:12:03 Office Visit Gunnar Martínez [facility] 1.2.840.114 350.1.13.10 4.2.7.2.686 [id number] 134 [id number] [facility] 2020-08-27 13:15:00 2020-08-27 13:15:00 Outpatient R GUNNAR MARTÍNEZ [facility] [id number] [facility] 2020-08-05 00:00:00 2020-08-05 00:00:00 Telephone Gunnar Martínez [facility] 1.2.840.114 350.1.13.10 4.2.7.2.686 [id number] [facility] 2020-05-19 08:30:00 2020-05-19 08:30:00 Outpatient R GUNNAR MARTÍNEZ [facility] [id number] [facility] 2020-05-02 00:00:00 2020-05-02 00:00:00 Telephone Gunnar Martínez [facility] 1.2.840.114 350.1.13.10 4.2.7.2.686 [id number] 134 [id number] [facility] 2019-10-14 21:07:19 2019-10-15 02:50:00 Emergency [facility] 1.2.840.114 350.1.13.10 4.2.7.2.686 [id number] 084 [id number] [facility] Results Test Description Test Time Test Comments Results Result [facility]00:00* Test Item Value Reference Range Interpretation Comme nts SURGICAL (test code = SR) R UN DATE: 12/26/23 [facility] PAGE 1 RUN TIME: 1500 Specimen Inquiry RUN USER: INTERFACE P ATIENT: JUSTINE DAHL LOC: NICOLE U #: [id number] AGE/SX: ROOM: 2021 RE12/22/23REG DR: Danuta Roberson MD : 02 BED: A DIS: 12/23/23 STATUS: DIS IN TLOC: SPEC #: [id number] RECD: 12/23/23 STATUS: SOUT REQ #: [id number] LINDSAY: 12/22/23-1639 [facility] DR: Danuta Roberson MD ENTERED: 12/23/23 SP TYPE: SURGICAL OTHR DR: ORDERED: ANATOMIC SPEC, SPEC TRACK, [id number] PROCEDURES: [id number] (12/23/23) TISSUES: A. PLACENTA, THIRD TRIMESTER (28 + WEEKS) FINAL DIAGNOSIS PLACENTA, DELIVERY: Membranes - Focal mild meconium staining. Cotyledons - Consistent with gestational age. - Four intervillous thrombi. Umbilical cord - Three vessels. - Over coiling of cord. GROSS DESCRIPTION Fixative: FormalinLabeled: Placenta (per requisition)Specimen received: Myers placenta with attached membranes and umbilical cordTrimmed weight: 649 gDimensions: 19.5 x 16.4 x 3.0 cmFetal membranes: Meno-walters, translucentSite of membrane rupture: At the placental marginFetal surface: Intact, blue-walters within normal arborizing vasculature pattern, andscattered focal fibrin depositionUmbilical cord: 3 vessels, 41.1 cm in length and ranges in diameter from 1.0 to 1.6 cmUmbilical cord insertion: Slightly eccentric; 5.5 cm from closest placental marginUmbilical cord appearance: Pale shah with 4-5 twists per 10 cmMaternal surface: Intact and completeCut surface: Dark redAbnormalities: Four pale shah to orange-shah lesions ranging in size from 0.6-1.1 cm, whichencompass less than 5% of the total placental volume Prec[employer] Lens Generator sections submitted as follows:A1 umbilical cord and membrane rollA2-A3 full-thickness placental cross-section divided into and maternal aspects, withone lesion in A2A4 additional section of maternal surface, to include one lesion.(CAA; 12/23/2023) Technical component performed at [facility] CONTINUED ON NEXT PAGE R UN DATE: 12/26/23 [facility] PAGE 2 RUN TIME: 1500 Specimen Inquiry RUN USER: INTERFACE S PEC #: [id number] PATIENT: JUSTINE DAHL #[id number] (Continued) GROSS DESCRIPTION (Continued) [address], [place] [address] Immunohistochemical stains and Special Stains are [facility], [address] [place] [address], [address], [place] [address] Unless gross only, the diagnosis is based upon microscopic examination. Immunohistochemistry: This test was developed and its performance characteristicsdetermined by this laboratory. It has not been approved nor does it need approval by [place] FDA. Appropriate positive and negative controls are reviewed and judged to beacceptable. This laboratory is certified under the Clinical Laboratory ImprovementAmendments (CLIA-88) as qualified to perform high complexity clinical laboratory testing. MICROSCOPIC DESCRIPTION Microscopic examination is performed and the findings are incorporated in the diagnosis. CLINICAL INFORMATION 12/22/23, OOB: 1640, TIF: 1806, , 38.2 CHTN, T2 DM. -- Signed _ Nader Moran 12/26/23 1500 END OF REPORT [id number] 14:38:00* Test Item Value Reference Range Interpretation Comme nts GLUBED (test code = GLUBED) 130 mg/dL 65-110 H [id number] 10:54:00* Test Item Value Reference Range Interpretation Comme nts GLUBED (test code = GLUBED) 85 mg/dL 65-110 N [id number] 05:51:00* Test Item Value Reference Range Interpretation Comme nts GLUBED (test code = GLUBED) 106 mg/dL 65-110 N [id number] 21:27:00* Test Item Value Reference Range Interpretation Comme nts GLUBED (test code = GLUBED) 137 mg/dL 65-110 H [id number] 18:10:00* Test Item Value Reference Range Interpretation Comme nts GLUBED (test code = GLUBED) 80 mg/dL 65-110 N [id number] 14:08:00* Test Item Value Reference Range Interpretation Comme nts GLUBED (test code = GLUBED) 76 mg/dL 65-110 N [id number] 13:16:00* Test Item Value Reference Range Interpretation Comme nts GLUBED (test code = GLUBED) 84 mg/dL 65-110 N URINALYSIS [id number] 12:44:00* Test Item Value Reference Range Interpretation Comme nts UA COLOR (test code = COLU) JARAD YELLOW A UA APPEARANCE (test code = APPU) Slightly-Cloudy CLEAR UA GLUCOSE DIPSTICK (test code = DGLUU) NEGATIVE NEG UA BILIRUBIN DIPSTICK (test code = BILU) NEGATIVE NEG UA KETONE DIPSTICK (test cod e = KETU) 1+ NEG A UA SPECIFIC GRAVITY (test code = SGU) 1.031 1.001-1.035 N UA BLOOD DIPSTICK (test code = THOM) NEG NEG UA PH DIPSTICK (test code = VLADISLAV) 5.0 5-9 UA PROTEIN DIPSTICK (test code = PROU) 3+ NEG A UA UROBILINIOGEN DIPSTICK (test code = URO) NEGATIVE mg/dL NEG UA NITRITE DIPSTICK (test code = ADRIÁN) NEG NEG UA LEUKOCYTE ESTERASE DIPSTICK (test code = LEUU) TRACE NEG A UA WBC (test code = WBCU) 3-5 #/hpf NONE SEEN A UA RBC (test code = RBCU) 11-15 #/hpf NONE SEEN A UA EPITHELIAL CELLS (test code = EPIU) RARE #/HPF RARE-FEW UA MUCUS (test code = MUCU) 4+ NONE SEEN A URINE SAMPLE: URINE [id number] 11:18:00* Test Item Value Reference Range Interpretation Comme nts GLUBED (test code = GLUBED) 100 mg/dL 65-110 N [id number] 08:49:00* Test Item Value Reference Range Interpretation Comme nts GLUBED (test code = GLUBED) 104 mg/dL 65-110 N [id number] 06:37:00* Test Item Value Reference Range Interpretation Comme nts GLUBED (test code = GLUBED) 109 mg/dL 65-110 N AG HEPATITIS B [id number] 04:36:00* Test Item Value Reference Range Interpretation Comme nts AG HEPATITIS B SURFACE (test code = HBSAG) NONREACTIVE NONREACTIVE AB HEPATITIS C [id number] 04:36:00* Test Item Value Reference Range Interpretation Comme nts AB HEPATITIS C (test code = HCVAB) NONREACTIVE NONREACTIVE SIGNAL TO CUTOFF (test code = CUTOFF) 0.06 <0.80 N AB [id number] 04:36:00* Test Item Value Reference Range Interpretation Comme nts AB TREPONEMA (test code = TREPAB) NONREACTIVE NONREACTIVE AB HIV 1 04:36:00* Test Item Value Reference Range Interpretation Comme nts AB HIV 1 2 (test code = MBC00LF) NONREACTIVE NONREACTIVE Done by Siemens iSiron[employer]aur 4th Gen HIV Ag/Ab Combo Screen COMPREHENSIVE METABOLIC [id number] 03:52:00* Test Item Value Reference Range Interpretation Comme nts SODIUM (test code = NA) 136 mEq/L 136-145 N POTASSIUM (test code = K) 4.4 mEQ/L 3.4-4.5 N Please note new normal range as of November 2023 CHLORIDE (test code = CL) 108 mEq/L 98-107 H Please note new normal range as of November 2023 CARBON DIOXIDE (test code = CO2) 20 mEq/L 22-31 L ANION GAP (test code = GAP) 12.4 10-20 N GLUCOSE (test code = GLU) 92 mg/dL 74-106 N Please note new normal range as of November 2023 BLOOD UREA NITROGEN (test code = BUN) 7 mg/dL 8-23 L Please note ne w normal range as of November 2023 CREATININE (test code = CREAT) 0.4 mg/dL 0.55-1.02 L Please note new normal range as of November 2023 TOTAL PROTEIN (test code = PROT) 5.9 g/dL 5.7-8.2 N Please note new normal range as of November 2023 ALBUMIN (test code = ALB) 3.6 g/dL 3.2-4.8 N Please note new normal range as of November 2023 CALCIUM (test code = CA) 8.8 mg/dL 8.3-10.6 N Please note new normal range as of November 2023 BILIRUBIN TOTAL (test code = BILT) 0.3 mg/dL 0.3-1.2 N Please note n ew normal range as of November 2023 SGOT/AST (test code = AST) 14 units/L < 34 SGPT/ALT (test code = ALT) 12 units/L 10-49 N ALKALINE PHOSPHATASE TOTAL (test code = ALKP) 195 units/L 46-116 H Please note n ew normal range as of November 2023 GLOMERULAR FILTRATION RATE (test code = GFR) 144.32 ml/min >60 N The Glomerular Filtration Rate is a calculated parameterbased on serum Creatinine, patient age and sex. GFR valuesless than 60 mL/min/1.73 square meters are indicative ofChronic Kidney Disease. Values less than 15 mL/min/1.73square meters indicate Kidney failure. The calculation forGFR is based on the CKD-EPI (2020) calculation. This formulais race indifferent and is the recommended formula for GFRby the National Kidney Foundation for Adults.The GFR will not calculate if the sex is unknown or if thepatient's age is <18 years. URIC [id number] 03:52:00* Test Item Value Reference Range Interpretation Comme nts URIC ACID (test code = URIC) 3.8 mg/dL 3.1-7.8 N Please note new normal range as of November 2023 LACTIC DEHYDROGENASE(LDH)2023-12-22 03:52:00* Test Item Value Reference Range Interpretation Comme nts LACTIC DEHYDROGENASE(LDH) (test code = LDH) 188 units/L 120-246 N Please note ne w normal range as of November 2023 UR PROTEIN/CREATININE [id number] 03:25:00* Test Item Value Reference Range Interpretation Comme nts UR PROTEIN RANDOM (test code = PROTU) 52 mg/dL No reference range available UR CREATININE RANDOM (test code = CREATU) 167 mg/dL No referenc e range available PROTEIN/CREATININE RATIO (test code = P/CRATIO) 311.4 mg/gcrea <200 H CBC W/AUTO [id number] 02:45:00* Test Item Value Reference Range Interpretation Comme nts WHITE BLOOD CELL (test code = WBC) 13.8 K/mm3 6.5-12.3 H RED BLOOD CELL (test code = RBC) 4.19 M/mm3 3.51-4.69 N HEMOGLOBIN (test code = HGB) 9.7 g/dL 10.1-13.8 L HEMATOCRIT (test code = HCT) 30.7 % 32.5-41.8 L MEAN CELL VOLUME (test code = MCV) 73.3 fL 84.6-96.6 L MEAN CELL HGB (test code = MCH) 23.2 pg 27.3-33.9 L MEAN CELL HGB CONCETRATION ( test code = MCHC) 31.6 gm/dL 32.0-34.2 L RED CELL DISTRIBUTION WIDTH (test code = RDW) 14.7 % 12.2-16.3 N PLATELET COUNT (test code = PLT) 407 K/mm3 134-363 H MEAN PLATELET VOLUME (test c ode = MPV) 9.5 fL 9.2-12.7 N NEUTROPHIL % (test code = NT%) 70.8 % 57.9-77.3 N LYMPHOCYTE % (test code = LY%) 20.7 % 14.5-29.7 N MONOCYTE % (test code = MO%) 6.4 % 3.6-10.2 N EOSINOPHIL % (test code = EO%) 0.3 % 0.0-3.0 N BASOPHIL % (test code = BA%) 0.4 % 0.1-0.9 N NEUTROPHIL # (test code = NT#) 9.8 K/mm3 LYMPHOCYTE # (test code = LY#) 2.9 K/mm3 MONOCYTE # (test code = MO#) 0.9 K/mm3 EOSINOPHIL # (test code = EO#) 0.04 K/mm3 BASOPHIL # (test code = BA#) 0.1 K/mm3 RUPTURE OF [id number] 22:29:00* Test Item Value Reference Range Interpretation Comme nts RUPTURE OF MEMBRANES (test c ode = ROM) NON-RUPTURED URINALYSIS [id number] 11:02:00* Test Item Value Reference Range Interpretation Comme nts UA COLOR (test code = COLU) YELLOW YELLOW UA APPEARANCE (test code = APPU) CLOUDY CLEAR A UA GLUCOSE DIPSTICK (test co de = DGLUU) NEGATIVE NEG UA BILIRUBIN DIPSTICK (test code = BILU) NEGATIVE NEG UA KETONE DIPSTICK (test cod e = KETU) NEGATIVE NEG UA SPECIFIC GRAVITY (test co de = SGU) 1.017 1.001-1.035 N UA BLOOD DIPSTICK (test code = THOM) NEG NEG UA PH DIPSTICK (test code = VLADISLAV) 7.0 5-9 UA PROTEIN DIPSTICK (test co de = PROU) NEGATIVE NEG UA UROBILINIOGEN DIPSTICK (test code = URO) NEGATIVE mg/dL NEG UA NITRITE DIPSTICK (test co de = ADRIÁN) NEG NEG UA LEUKOCYTE ESTERASE DIPSTI CK (test code = LEUU) NEG NEG UA WBC (test code = WBCU) 0-2 #/hpf NONE SEEN UA RBC (test code = RBCU) 0-2 #/hpf NONE SEEN UA EPITHELIAL CELLS (test co de = EPIU) RARE #/HPF RARE-FEW UA BACTERIA (test code = BACU) RARE /HPF RARE-FEW UA MUCUS (test code = MUCU) RARE NONE SEEN URINE SAMPLE: CLEAN CATCHURINALYSIS [id number] 10:45:00* Test Item Value Reference Range Interpretation Comme nts UA COLOR (test code = COLU) YELLOW YELLOW UA APPEARANCE (test code = APPU) CLOUDY CLEAR A UA GLUCOSE DIPSTICK (test co de = DGLUU) 2+ NEG A UA BILIRUBIN DIPSTICK (test code = BILU) NEGATIVE NEG UA KETONE DIPSTICK (test cod e = KETU) NEGATIVE NEG UA SPECIFIC GRAVITY (test co de = SGU) 1.025 1.001-1.035 N UA BLOOD DIPSTICK (test code = THOM) NEG NEG UA PH DIPSTICK (test code = VLADISLAV) 6.0 5-9 UA PROTEIN DIPSTICK (test co de = PROU) NEGATIVE NEG UA UROBILINIOGEN DIPSTICK (test code = URO) NEGATIVE mg/dL NEG UA NITRITE DIPSTICK (test co de = ADRIÁN) NEG NEG UA LEUKOCYTE ESTERASE DIPSTI CK (test code = LEUU) 1+ NEG A UA WBC (test code = WBCU) 11-15 #/hpf NONE SEEN A UA RBC (test code = RBCU) 0-2 #/hpf NONE SEEN UA EPITHELIAL CELLS (test co de = EPIU) MANY #/HPF RARE-FEW A UA BACTERIA (test code = BACU) RARE /HPF RARE-FEW UA MUCUS (test code = MUCU) 1+ NONE SEEN URINE SAMPLE: CLEAN CATCHPOCT URINALYSIS W/O SPECIFIC [id number] 19:13:00 * Test Item Value Reference Range Interpretation Comme nts POCT PH U (test code = 3254) n/a 5-8 POCT U LEUK EST (test code = 3263) n/a Negative - Negative POCT U NIT (test code = 3262) n/a Negative - Negati ve POCT U PROT (test code = 3259) Negative Negative - Negat cam POCT U GLU (test code = 3256) Normal Negative - Negati ve POCT U KETONE (test code = 3258) n/a Negative - Neg ative POCT U BLD (test code = 3257) n/a Negative - Negati ve [facility] [id number] 19:13:00* Test Item Value Reference Range Interpretation Comme nts POCT PREG (test code = 1605) Positive On board controls acceptable with C Line (test code = 3574) Yes POCT PREG LOT # (test code = 3575) POCT PREG TEST DATE ( test code = 3576) [facility] URINALYSIS W/O SPECIFIC [id number] 19:13:00* Test Item Value Reference Range Interpretation Comme nts POCT PH U (test code = 3254) n/a 5-8 POCT U LEUK EST (test code = 3263) n/a Negative - Negative POCT U NIT (test code = 3262) n/a Negative - Negati ve POCT U PROT (test code = 3259) Negative Negative - Negat cam POCT U GLU (test code = 3256) Normal Negative - Negati ve POCT U KETONE (test code = 3258) n/a Negative - Neg ative POCT U BLD (test code = 3257) n/a Negative - Negati ve [facility] [id number] 19:13:00* Test Item Value Reference Range Interpretation Comme nts POCT PREG (test code = 1605) Positive On board controls acceptable with C Line (test code = 3574) Yes POCT PREG LOT # (test code = 3575) POCT PREG TEST DATE ( test code = 3576) [facility] SARS-COV-2 ANTIGEN (BINAX NOW)2023-03-16 17:55:00* Test Item Value Reference Range Interpretation Comme nts POCT SARS-COV-2 ANTIGEN (test code = 62007-5) Not Detected Not Detected On board controls acceptable with C Line (test code = 3574) Yes JAMISON (test code = JAMISON) accurate developme nt and interpretation of all internal controls Lab Interpretation (test code = 37567-2) Normal [facility] MOLECULAR [id number] 17:50:51* Test Item Value Reference Range Interpretation Comme nts POCT Molecular FluA (test co de = 81789-8) Negative Negative POCT Molecular FluB (test co de = 43263-0) Negative Negative Lab Interpretation (test cod e = 66433-4) Normal [facility] - [facility]CE [id number] 17:49:00* Test Item Value Reference Range Interpretation Comme nts ABO & RH (test code = 20) A Positive IAT (test code = 1185) Negative [facility] [id number] 14:56:52* Test Item Value Reference Range Interpretation Comme nts WBC (test code = 6690-2) 8.54 See_Comment [Automated messa ge] The system which generated this result transmitted reference range: 4.30 - 11.10 10*3/?L. The reference range was not used to interpret this result as normal/abnormal. RBC (test code = 789-8) 4.25 See_Comment [Automated messa ge] The system which generated this result transmitted reference range: 3.93 - 5.25 10*6/?L. The reference range was not used to interpret this result as normal/abnormal. HGB (test code = 718-7) 12.4 g/dL 11.6-15.0 HCT (test code = 4544-3) 35.5 % 35.7-45.2 L MCV (test code = 787-2) 83.5 fL 80.6-95.5 MCH (test code = 785-6) 29.2 pg 25.9-32.8 MCHC (test code = 786-4) 34.9 g/dL 31.6-35.1 RDW-SD (test code = 72388-7) 37.3 fL 39.0-49.9 L RDW-CV (test code = 788-0) 12.3 % 12.0-15.5 PLT (test code = 777-3) 266 See_Comment [Automated messa ge] The system which generated this result transmitted reference range: 166 - 358 10*3/?L. The reference range was not used to interpret this result as normal/abnormal. MPV (test code = 81504-0) 9.1 fL 9.5-12.9 L NRBC/100 WBC (test code = 2913117596) 0.0 See_Comment [Automated girnarsoft ssage] The system which generated this result transmitted reference range: 0.0 - 10.0 /100 WBCs. The reference range was not used to interpret this result as normal/abnormal. NRBC x10^3 (test code = 6772227057) See_Comment [Automated messa ge] The system which generated this result transmitted reference range: 10*3/?L. The reference range was not used to interpret this result as normal/abnormal. GRAN MAT (NEUT) % (test code = 770-8) 68.1 % IMM GRAN % (test code = 1970109820) 0.40 % LYMPH % (test code = 736-9) 23.7 % MONO % (test code = 5905-5) 6.1 % EOS % (test code = 713-8) 1.2 % BASO % (test code = 706-2) 0.5 % GRAN MAT x10^3(ANC) (test code = 0181872645) 5.83 10*3/uL 1.88-7.09 IMM GRAN x10^3 (test code = 2684600454) 0.03 10*3/uL 0.00-0.06 LYMPH x10^3 (test code = 731-0) 2.02 10*3/uL 1.32-3.29 MONO x10^3 (test code = 742-7) 0.52 10*3/uL 0.33-0.92 EOS x10^3 (test code = 711-2) 0.10 10*3/uL 0.03-0.39 BASO x10^3 (test code = 704-7) 0.04 10*3/uL 0.01-0.07 Lab Interpretation (test code = 93911-5) Abnormal [facility] BHCG (QUANTITATIVE)2022-10-31 01:30:58* Test Item Value Reference Range Interpretation Comme nts BETA HCG (test code = 7031735425) See_Comment [Automated messa ge] The system which generated this result transmitted reference range: Non- female and male patients: <5 mIU/mL. The reference range was not used to interpret this result as normal/abnormal. JAMISON (test code = JAMISON) Gestational Age ?Range (mIU/mL) 1-10 ?Weeks ?77-66849879-28 Weeks ?98673-59647889-84 Weeks ?6231-32635369-50 Weeks ?7071-634716 Biotin has been reported to cause a negative bias, interpret results relative to patient's use of biotin. [facility]. METABOLIC PANEL (91811)2022-10-31 00:20:35* Test Item Value Reference Range Interpretation Comme nts NA (test code = 1764908725) 136 mmol/L 135-145 K (test code = 9141775258) 4.0 mmol/L 3.5-5.0 CL (test code = 8278672941) 109 mmol/L 98-108 H CO2 TOTAL (test code = 6335505449) 22 mmol/L 23-31 L AGAP (test code = 3534393969) 5 2-16 BUN (test code = 0908362720) 11 mg/dL 7-23 GLUCOSE (test code = 7536826277) 83 mg/dL 70-110 CREATININE (test code = 3981414251) 0.70 mg/dL 0.50-1.04 TOTAL BILI (test code = 7412732134) 0.4 mg/dL 0.1-1.1 CALCIUM (test code = 2053574600) 9.0 mg/dL 8.6-10.6 T PROTEIN (test code = 6619523098) 7.0 g/dL 6.3-8.2 ALBUMIN (test code = 2928082296) 4.2 g/dL 3.5-5.0 ALK PHOS (test code = 2436263613) 42 U/L 34-122 ALTv (test code = 1742-6) 19 U/L 5-35 AST(SGOT) (test code = 0530561221) 19 U/L 13-40 eGFR (test code = 9411466478) 106.7 mL/min/1.73m2 JAMISON (test code = JAMISON) Association of Glomerular Filtration Rate (GFR) and Staging of Kidney Disease* + --+ --+ ------+| GFR (mL/min/1.73 m2) ?| With Kidney Damage ?| ?Without Kidney Damage+ --------+ --------+ +| ?>90 ?| ?Stage one ?| ? Normal ?+ ---+ ---+ -------+| ?60-89 ?| ?Stage two ?| ? Decreased GFR ? + --+ --+ ------+| ?30-59 ?| ?Stage three ?| ? Stage three ? + --+ --+ ------+| ?15-29 ?| ?Stage four ? | ? Stage four ?+ ---+ ---+ -------+| ?<15 (or dialysis) ? ?| ?Stage five ? | ? Stage five ?+ ---+ ---+ -------+ *Each stage assumes the associated GFR level has been in effect for at least three months. ?Stages 1 to 5, with or without kidney disease, indicate chronic kidney disease. Notes: Determination of stages one and two (with eGFR >59mL/min/1.73 m2) requires estimation of kidney damage for at least three months as defined by structural or functional abnormalities of the kidney, manifested by either:Pathological abnormalities or Markers of kidney damage (including abnormalities in the composition of the blood or urine or abnormalities in imaging tests). Lab Interpretation (test code = 49675-9) [facility]normal [facility] 00:20:15* Test Item Value Reference Range Interpretation Comme nts LIPASE (test code = 6814809827) 57 U/L 0-220 Lab Interpretation (test cod e = 64292-3) Normal [facility] WITH [id number] 00:06:58* Test Item Value Reference Range Interpretation Comme nts WBC (test code = 6690-2) 8.96 See_Comment [Automated gripNotea Emergent Views] The system which generated this result transmitted reference range: 4.30 - 11.10 10*3/?L. The reference range was not used to interpret this result as normal/abnormal. RBC (test code = 789-8) 4.54 See_Comment [Automated gripNotea Emergent Views] The system which generated this result transmitted reference range: 3.93 - 5.25 10*6/?L. The reference range was not used to interpret this result as normal/abnormal. HGB (test code = 718-7) 12.9 g/dL 11.6-15.0 HCT (test code = 4544-3) 39.1 % 35.7-45.2 MCV (test code = 787-2) 86.1 fL 80.6-95.5 MCH (test code = 785-6) 28.4 pg 25.9-32.8 MCHC (test code = 786-4) 33.0 g/dL 31.6-35.1 RDW-SD (test code = 85387-9) 38.8 fL 39.0-49.9 L RDW-CV (test code = 788-0) 12.3 % 12.0-15.5 PLT (test code = 777-3) 297 See_Comment [Automated gripNotea ge] The system which generated this result transmitted reference range: 166 - 358 10*3/?L. The reference range was not used to interpret this result as normal/abnormal. MPV (test code = 79080-4) 9.4 fL 9.5-12.9 L NRBC/100 WBC (test code = 8491162904) 0.0 See_Comment [Automated girnarsoft ssage] The system which generated this result transmitted reference range: 0.0 - 10.0 /100 WBCs. The reference range was not used to interpret this result as normal/abnormal. NRBC x10^3 (test code = 2023753777) See_Comment [Automated gripNotea ge] The system which generated this result transmitted reference range: 10*3/?L. The reference range was not used to interpret this result as normal/abnormal. GRAN MAT (NEUT) % (test code = 770-8) 70.5 % IMM GRAN % (test code = 4191716654) 0.70 % LYMPH % (test code = 736-9) 20.4 % MONO % (test code = 5905-5) 6.8 % EOS % (test code = 713-8) 1.3 % BASO % (test code = 706-2) 0.3 % GRAN MAT x10^3(ANC) (test code = 8386806385) 6.31 10*3/uL 1.88-7.09 IMM GRAN x10^3 (test code = 0544224594) 0.06 10*3/uL 0.00-0.06 LYMPH x10^3 (test code = 731-0) 1.83 10*3/uL 1.32-3.29 MONO x10^3 (test code = 742-7) 0.61 10*3/uL 0.33-0.92 EOS x10^3 (test code = 711-2) 0.12 10*3/uL 0.03-0.39 BASO x10^3 (test code = 704-7) 0.03 10*3/uL 0.01-0.07 Lab Interpretation (test code = 50967-1) Abnormal [facility] URINALYSIS W/O SPECIFIC [id number] 16:03:00* Test Item Value Reference Range Interpretation Comme nts POCT PH U (test code = 3254) n/a 5-8 POCT U LEUK EST (test code = 3263) n/a Negative - Negative POCT U NIT (test code = 3262) n/a Negative - Negati ve POCT U PROT (test code = 3259) Negative Negative - Negat cam POCT U GLU (test code = 3256) Negative Negative - Negati ve POCT U KETONE (test code = 3258) n/a Negative - Neg ative POCT U BLD (test code = 3257) n/a Negative - Negati ve [facility] URINALYSIS W/O SPECIFIC [id number] 21:12:00* Test Item Value Reference Range Interpretation Comme nts POCT PH U (test code = 3254) 5 mg/dl 5-8 POCT U LEUK EST (test code = 3263) trace Negative - Negative POCT U NIT (test code = 3262) negative Negative - Negative POCT U PROT (test code = 3259) trace Negative - Negative POCT U GLU (test code = 3256) negative Negative - Negative POCT U KETONE (test code = 3258) negative Negative - Negative POCT U BLD (test code = 3257) negative Negative - Negative JAMISON (test code = JAMISON) accurate developme nt and interpretation of all internal controls Lab Interpretation (test code = 91318-2) Abnormal [facility] URINALYSIS W/O SPECIFIC [id number] 22:29:00* Test Item Value Reference Range Interpretation Comme nts POCT PH U (test code = 3254) n/a 5-8 POCT U LEUK EST (test code = 3263) n/a Negative - Negative POCT U NIT (test code = 3262) n/a Negative - Negati ve POCT U PROT (test code = 3259) negative Negative - Negat cam POCT U GLU (test code = 3256) Normal Negative - Negati ve POCT U KETONE (test code = 3258) n/a Negative - Neg ative POCT U BLD (test code = 3257) n/a Negative - Negati ve [facility] SPECIFIC [id number] 22:29:00* Test Item Value Reference Range Interpretation Comme nts POCT PH U (test code = 3254) n/a 5-8 POCT U LEUK EST (test code = 3263) n/a Negative - Negative POCT U NIT (test code = 3262) n/a Negative - Negati ve POCT U PROT (test code = 3259) negative Negative - Negat cam POCT U GLU (test code = 3256) Normal Negative - Negati ve POCT U KETONE (test code = 3258) n/a Negative - Neg ative POCT U BLD (test code = 3257) n/a Negative - Negati ve [facility]/O SPECIFIC [id number] 22:29:00* Test Item Value Reference Range Interpretation Comme nts POCT PH U (test code = 3254) n/a 5-8 POCT U LEUK EST (test code = 3263) n/a Negative - Negative POCT U NIT (test code = 3262) n/a Negative - Negati ve POCT U PROT (test code = 3259) negative Negative - Negat cam POCT U GLU (test code = 3256) Normal Negative - Negati ve POCT U KETONE (test code = 3258) n/a Negative - Neg ative POCT U BLD (test code = 3257) n/a Negative - Negati ve [facility] CenterType [facility] Screen - ONCE [id number] 05:27:52 * Test Item Value Reference Range Interpretation Comme nts ABO & RH (test code = 20) A Positive Performed at [facility] Laboratory Services - [facility] Blood [address] [place], [place] [address]Toll Free: [phone] No. [id number] IAT (test code = 1185) Negative Performed at [facility] Laboratory [facility] - [facility] Blood [address] [place], [place] [address]Toll Free: [phone] No. [id number] [facility] BHCG (QUANTITATIVE)2022-08-27 03:53:03* Test Item Value Reference Range Interpretation Comme nts BETA HCG (test code = 5701424566) 54815.00 See_Comment [Automated gripNotea ge] The system which generated this result transmitted reference range: Non- female and male patients: <5 mIU/mL. The reference range was not used to interpret this result as normal/abnormal. JAMISON (test code = JAMISON) Gestational Age ?Range (mIU/mL) 1-10 ?Weeks ?71-83438692-07 Weeks ?82795-31709145-10 Weeks ?7536-02173656-44 Weeks ?9421-443078 Biotin has been reported to cause a negative bias, interpret results relative to patient's use of biotin. [facility] [id number] 00:06:00* Test Item Value Reference Range Interpretation Comme nts POCT PREG (test code = 1605) positive On board controls acceptable with C Line (test code = 3574) present POCT PREG LOT # (test code = 3575) [id number] POCT PREG TEST DATE ( test code = 3576) 10/02/2023 Lab Interpretation (test cod e = 13856-6) Normal [facility]. METABOLIC PANEL (43540)2022-05-19 17:12:55* Test Item Value Reference Range Interpretation Comme nts NA (test code = 1323043701) 137 mmol/L 135-145 K (test code = 8618686324) 4.3 mmol/L 3.5-5.0 CL (test code = 4183251477) 104 mmol/L 98-108 CO2 TOTAL (test code = 8321545589) 24 mmol/L 23-31 AGAP (test code = 9599312028) 2-16 BUN (test code = 0917912153) 10 mg/dL 7-23 GLUCOSE (test code = 2975571693) 99 mg/dL 70-110 CREATININE (test code = 2164189963) 0.60 mg/dL 0.50-1.04 TOTAL BILI (test code = 8435439204) 0.6 mg/dL 0.1-1.1 CALCIUM (test code = 4946181530) 8.9 mg/dL 8.6-10.6 T PROTEIN (test code = 6293635169) 7.2 g/dL 6.3-8.2 ALBUMIN (test code = 5854953817) 4.5 g/dL 3.5-5.0 ALK PHOS (test code = 8138344740) 54 U/L 34-122 ALTv (test code = 1742-6) 21 U/L 5-35 AST(SGOT) (test code = 0144678338) 20 U/L 13-40 eGFR (test code = 0208682985) mL/min/1.73m2 JAMISON (test code = JAMISON) Association of Glomerular Filtration Rate (GFR) and Staging of Kidney Disease* + + +- +| GFR (mL/min/1.73 m2) ?| With Kidney Damage ?| ?Without Kidney Damage+ ------+ ----+ ------+| ?>90 ?| ?Stage one ?| ? Normal ?+ -+ + -+| ?60-89 ?| ?Stage two ?| ? Decreased GFR ? + + +- +| ?30-59 ?| ?Stage three ?| ? Stage three ? + + +- +| ?15-29 ?| ?Stage four ? | ? Stage four ?+ -+ + -+| ?<15 (or dialysis) ? ?| ?Stage five ? | ? Stage five ?+ -+ + -+ *Each stage assumes the associated GFR level has been in effect for at least three months. ?Stages 1 to 5, with or without kidney disease, indicate chronic kidney disease. Notes: Determination of stages one and two (with eGFR >59mL/min/1.73 m2) requires estimation of kidney damage for at least three months as defined by structural or functional abnormalities of the kidney, manifested by either:Pathological abnormalities or Markers of kidney damage (including abnormalities in the composition of the blood or urine or abnormalities in imaging tests). [facility] WITH [id number] 16:41:26* Test Item Value Reference Range Interpretation Comme nts WBC (test code = 6690-2) See_Comment [Automated messa ge] The system which generated this result transmitted reference range: 4.30 - 11.10 10*3/?L. The reference range was not used to interpret this result as normal/abnormal. RBC (test code = 789-8) See_Comment [Automated messa ge] The system which generated this result transmitted reference range: 3.93 - 5.25 10*6/?L. The reference range was not used to interpret this result as normal/abnormal. HGB (test code = 718-7) 14.1 g/dL 11.6-15.0 HCT (test code = 4544-3) 40.1 % 35.7-45.2 MCV (test code = 787-2) 82.9 fL 80.6-95.5 MCH (test code = 785-6) 29.1 pg 25.9-32.8 MCHC (test code = 786-4) 35.2 g/dL 31.6-35.1 H RDW-SD (test code = 13035-5) 37.1 fL 39.0-49.9 L RDW-CV (test code = 788-0) 12.1 % 12.0-15.5 PLT (test code = 777-3) See_Comment [Automated gripNotea ge] The system which generated this result transmitted reference range: 166 - 358 10*3/?L. The reference range was not used to interpret this result as normal/abnormal. MPV (test code = 66010-2) 9.1 fL 9.5-12.9 L NRBC/100 WBC (test code = 1916940202) See_Comment [Automated girnarsoft ssage] The system which generated this result transmitted reference range: 0.0 - 10.0 /100 WBCs. The reference range was not used to interpret this result as normal/abnormal. NRBC x10^3 (test code = 9524180709) See_Comment [Automated messa ge] The system which generated this result transmitted reference range: 10*3/?L. The reference range was not used to interpret this result as normal/abnormal. GRAN MAT (NEUT) % (test code = 770-8) 76.0 % IMM GRAN % (test code = 3089108907) 0.40 % LYMPH % (test code = 736-9) 16.1 % MONO % (test code = 5905-5) 6.8 % EOS % (test code = 713-8) 0.3 % BASO % (test code = 706-2) 0.4 % GRAN MAT x10^3(ANC) (test code = 8887827534) 7.66 10*3/uL 1.88-7.09 H IMM GRAN x10^3 (test code = 0617413889) 0.04 10*3/uL 0.00-0.06 LYMPH x10^3 (test code = 731-0) 1.62 10*3/uL 1.32-3.29 MONO x10^3 (test code = 742-7) 0.68 10*3/uL 0.33-0.92 EOS x10^3 (test code = 711-2) 0.03 10*3/uL 0.03-0.39 BASO x10^3 (test code = 704-7) 0.04 10*3/uL 0.01-0.07 Lab Interpretation (test code = 45632-2) [facility]normal [facility] [id number] 16:03:00* Test Item Value Reference Range Interpretation Comme nts POCT PREG (test code = 1605) negative On board controls acceptable with C Line (test code = 3574) present POCT PREG LOT # (test code = 3575) [id number] POCT PREG TEST DATE ( test code = 3576) Lab Interpretation (test cod e = 07894-4) Normal [facility] Notes Date/Time Note Provider Source 2024-06-15 10:12:41 3rd ATC, detailed Vm left with callback number for any further assistance. Closing out. A Redmond LVN [facility] 2024-06-14 10:07:30 Attempted to contact, no answer, left message to call again. A Ku RN [facility] 2024-06-14 09:53:47 Pt is returning a missed call. Would like a call back please. ITY ASSURANCE MONITOR FINAL Emily Angeles [facility] 2024-06-14 09:48:41 LMTCB Erica Redmond LVN 06/14/2024 ITY ASSURANCE MONITOR FINAL [facility] 2024-06-14 09:44:23 Justine Dahl is a 23 year old female Pt is calling wanting to know when she should come in to be seen for a nose bleed. Pt states she just had a 5 minute nose bleed. Please advise A Beth [facility] 2024-06-13 16:11:45 Contact was made with Justine Dahl on 06/13/2024 16:11 and informed of lab results/recommendations per Provider notes. All was verbalized understanding. A Redmond LVN [facility] 2024-06-13 15:30:11 Justine Dahl is a 23 year old female and is returning a missed call to go over her lab results. Would like a call back please. A Angeles [facility] 2023-12-23 16:32:00 [facility]LY [facility] ([facility]) OB Disch REPORT#:[id number] REPORT STATUS: Signed REPORT INITIALIZATION DATE:12/23/23 TIME: 1631 PATIENT: JUSTINE DAHL UNIT #: [id number] ROOM/BED: 4-A : 02 AGE: 23 SEX: F ATTEND: Danuta Roberson MD ADM AUTHOR: Danuta Roberson MD REPT SERVICE DT/TIME: 12/23/23 5111 * ALL edits or amendments must be made on the electronic/computer document * Subjective Subjective EGA at delivery (wks/days): 38 weeks Status/day: post (day 1) Patient reports: Patient reports: Yes: normal lochia, pain management effective, tolerating po well, voiding well, tolerating ambulation, flatus. No: complaints, nausea, vomiting, excessive bleeding. Objective General VS: Vital Signs Date Temp Pulse Resp B/P B/P Mean Pulse Ox FiO2 12/21-12/22 97.4-98.4 100-155 18 126-152/73-87 98.0-111.0 96-100 Last Documented: Result Date Time B/P Mean 100.0 12/22 1208 Pulse Ox 97 12/22 1208 B/P 127/87 12/22 1208 Temp 98.4 12/22 1208 Pulse 109 12/22 1208 Resp 18 12/22 1208 PATIENT WEIGHT: Weight (lb): 258 Weight (oz): Weight (kg): 117.300 Physical Exam Cardiac: regular rate Lungs: unlabored breathing Neuro: Exam: alert, oriented x3, normal speech, normal gait Uterus: non-tender Fundus: firm, below the umbilicus Lower extremities: Edema: 1+ pitting Results Findings/Data: Laboratory Tests: 12/22 12/22 12/22 12/21 12/21 1435 1050 0548 2124 1807 Chemistry POC Glucose (65 - 110 mg/dL) 130 H 85 106 137 H 80 12/21 12/21 12/21 12/21 1354 1306 1221 1115 Chemistry POC Glucose (65 - 110 mg/dL) 76 84 100 Urines Urine Color (YELLOW) JARAD Urine Appearance (CLEAR) Slightly-Cloudy Urine pH (5 - 9) 5.0 Ur Specific Butler (1.001 - 1.035) 1.031 Urine Protein (NEG) 3+ H Urine Glucose (UA) (NEG) NEGATIVE Urine Ketones (NEG) 1+ H Urine Blood (NEG) NEG Urine Nitrite (NEG) NEG Urine Bilirubin (NEG) NEGATIVE Urine Urobilinogen (NEG mg/dL) NEGATIVE Ur Leukocyte Esterase (NEG) TRACE H Urine RBC (NONE SEEN #/hpf) 11-15 H Urine WBC (NONE SEEN #/hpf) 3-5 H Ur Epithelial Cells (RARE - FEW #/HPF) RARE Urine Mucus (NONE SEEN) 4+ H 12/21 12/21 12/21 0845 0634 0153 Chemistry Sodium (136 - 145 mEq/L) 136 Potassium (3.4 - 4.5 mEQ/L) 4.4 Chloride (98 - 107 mEq/L) 108 H Carbon Dioxide (22 - 31 mEq/L) 20 L Anion Gap (10 - 20) 12.4 BUN (8 - 23 mg/dL) 7 L Creatinine (0.55 - 1.02 mg/dL) 0.4 L Glomerular Filtr Rate (>60 ml/min) 144.32 Glucose (74 - 106 mg/dL) 92 POC Glucose (65 - 110 mg/dL) 104 109 Uric Acid (3.1 - 7.8 mg/dL) 3.8 Calcium (8.3 - 10.6 mg/dL) 8.8 Total Bilirubin (0.3 - 1.2 mg/dL) 0.3 AST (< 34 units/L) 14 ALT (10 - 49 units/L) 12 Total Alk Phosphatase (46 - 116 units/L) 195 H Lactate Dehydrogenase (120 - 246 units/L) 188 Total Protein (5.7 - 8.2 g/dL) 5.9 Albumin (3.2 - 4.8 g/dL) 3.6 Hematology WBC (6.5 - 12.3 K/mm3) 13.8 H RBC (3.51 - 4.69 M/mm3) 4.19 Hgb (10.1 - 13.8 g/dL) 9.7 L Hct (32.5 - 41.8 %) 30.7 L MCV (84.6 - 96.6 fL) 73.3 L MCH (27.3 - 33.9 pg) 23.2 L MCHC (32.0 - 34.2 gm/dL) 31.6 L RDW (12.2 - 16.3 %) 14.7 Plt Count (134 - 363 K/mm3) 407 H MPV (9.2 - 12.7 fL) 9.5 Neut % (Auto) (57.9 - 77.3 %) 70.8 Lymph % (Auto) (14.5 - 29.7 %) 20.7 Catron % (Auto) (3.6 - 10.2 %) 6.4 Eos % (Auto) (0.0 - 3.0 %) 0.3 Baso % (Auto) (0.1 - 0.9 %) 0.4 Neut # (Auto) (K/mm3) 9.8 Lymph # (Auto) (K/mm3) 2.9 Catron # (Auto) (K/mm3) 0.9 Eos # (Auto) (K/mm3) 0.04 Baso # (Auto) (K/mm3) 0.1 Serology Treponema pallidum Ab (NONREACTIVE) NONREACTIVE Hep Bs Antigen (NONREACTIVE) NONREACTIVE Hepatitis C Antibody (NONREACTIVE) NONREACTIVE Hep C Ab Signal/Cutoff (<0.80) 0.06 HIV 1 2 Antibody (NONREACTIVE) NONREACTIVE Urines Ur Random Creatinine (mg/dL) 167 U Random Total Protein (mg/dL) 52 Protein/Creatinin Ratio (<200 mg/gcrea) 311.4 H Microbiology: Date/Time Procedure - Status Source Growth 12/21 1221 Urine Culture - RES URINE Discharge Summary General Problem List/A P: 1. Diabetes 2. Chronic hypertension Assessment: nml progress, chronic hypertension (not on meds), type II diabetes (sliding scale) Date of admission: Date of admission: 12/22/23 Admission diagnosis: mewignje-sxn-[id number], HTN-chronic w/pre-eclamp Hospital course: induction of labor, spontaneous vag delivery, epidural anesthesia, nml postop/postpart care Procedures: epidural anesthesia, spontaneous vaginal deliv Discharge condition: stable Discharge to: Home/Self Care Discharge diagnosis: full-term uncomp delivery, pre-existing diabetes, chronic HTN w/pre-eclamp Discharge management: less than 30 mins Baby A: Vaginal delivery: spontaneous status: live born Gender: female 1 minute: 8 5 minutes: 8 Plan: routine care, discharge tomorrow, monitor to assess need for meds for CHTN or T2DM Vaginal packing at delivery: No Discharge Instructions Diet: Resume Home Diet/Feeds Activity: No [place] for 6 Wks Additional discharge routines: Attending Follow-Up Discharge meds: Stop taking the following medications: INSULIN LISPRO (HumaLOG KWIKPEN (3mL)) 100 UNIT/ML INSULN.PEN 2 UNITS SUBCUTANEOUS TWICE DAILY. ASPIRIN (ASPIRIN) 81 MG TAB.CHEW 81 MILLIGRAM ORAL DAILY. [SEMGLEE] PEN.INJCTR TWICE DAILY. Continue taking these medications: PNV WITH FE FUMARATE/FA () 27 MG IRON-800 MCG TAB 1 TABLET ORAL DAILY. FERROUS SULFATE (FEOSOL) 325 MG (65 MG IRON) TAB 325 MILLIGRAM ORAL DAILY. ALBUTEROL (ALBUTEROL HFA 90 MCG/ACT) 90 MCG INHALER as needed for WHEEZING / SHORTNESS OF BREATH Start taking the following new medications: IBUPROFEN (MOTRIN) 600 MG TAB 600 MILLIGRAM ORAL EVERY 6 HOURS NEEDED. as needed for PAIN SCALE 1-3 ( USE 2ND) Qty = 40 Refills = 1 Prescriptions: e-prescribe Rx drug database reviewed: no Add'l Follow-up Appointments Attending Physician: Attending Physician: Danuta Roberson MD Attending physician follow up timeframe: In 1-2 weeks at 1634 RPT #:[id number] END OF REPORT [facility] 2023-12-23 10:05:00 [facility] ([facility]) OB Postpart Progr Note REPORT#:[id number] REPORT STATUS: Signed REPORT INITIALIZATION DATE:12/23/23 TIME: 100 PATIENT: JUSTINE DAHL UNIT #: [id number] ROOM/BED: : 02 AGE: 23 SEX: F ATTEND: Danuta Roberson MD ADM AUTHOR: Kp Wayne MD REPT SERVICE DT/TIME: 12/23/23 1005 * ALL edits or amendments must be made on the electronic/computer document * Subjective Subjective EGA at delivery (wks/days): 38 weeks Status/day: post (day 1) Free Text Subj Notes Free Text Subj Notes: feeling comfortable, pain well controlled. normal lochia. Objective Nursing Documentation Review Nursing data: The data set between the solid lines has been imported from nursing documentation. Any exceptions have been noted below under Provider comments. Feeding preference: Post hemorrhage risk score: MedRisk Provider comments on imported nursing data: [] General VS: Vital Signs Date Temp Pulse Resp B/P B/P Mean Pulse Ox FiO2 12/21-12/22 97.4-98.3 89-155 16-18 112-155/60-10 82.0-125.0 96-100 6 Last Documented: Result Date Time B/P Mean 100.0 12/22 721 Pulse Ox 98 12/22 721 B/P 128/86 12/22 721 Temp 98.3 12/22 07 Pulse 110 12/22 0722 Resp 18 12/22 0722 PATIENT WEIGHT: Weight (lb): 258 Weight (oz): Weight (kg): 117.300 Medications: Active Meds + DC'd Last 24 Hrs Multivit/Folic Acid/Iron ( Vitamin Tablet) 1 TAB DAILY PO Bupivacaine HCl (SENSORCAINE PF 0.25% 30 ML) 30 ML .STK-MED ONE ZCHARGE (DC) Insulin Human Lispro (HumaLOG 3ML VIAL) SEE SLIDING SCALE (Admin Criteria) FASTING AND 2 HOURS POST PRANDIAL PC HS SUBQ Docusate Sodium (DOCUSATE SODIUM 100 MG CAP) 100 MG Q12HR PO Oxytocin/Sodium Chloride (Oxytocin 15 units/NS 250 mL) 250 ML .STK-MED ONE INJ (DC) Lactated Ringer's (LACTATED RINGERS) 1,000 ML .[id number] IV Acetaminophen (TYLENOL EXTRA STRENGTH) 500 MG Q4H PRN PRN PO Benzocaine (AMERICAINE) 1 APPLIC DAILY PRN PRN TOPICAL (CKD) Benzocaine/Menthol (Chloraseptic Sore Throat Lozng) 1 EACH ASDIR PRN MM (CKD) Carboprost Tromethamine (HEMABATE 250 MCG/ML AMP) 250 MCG Q15M PRN PRN IM Dextrose (Glutose-15 (40%)) 37.5 ML Q15M PRN PRN BUCCAL Dextrose/Water (DEXTROSE 50% IN WATER 50 ML SYR) 50 ML ASDIR PRN IV (CKD ) Glucagon (GLUCAGON 1 MG/VIAL) 1 MG ASDIR PRN IM Guaifenesin/Dextromethorphan (guaiFENesin W DM 10 ML UD) 10 ML Q4H PRN PRN PO Hydralazine HCl (hydrALAZINE HCL 20MG) 10 MG ASDIR PRN IV Hydrocodone Bitart/Acetaminophen (NORCO 5/325 TABLET) 1 TAB Q4H PRN PRN PO Hydrocortisone/Pramoxine (ANALPRAM HC 2.5% CRM SINGLES) 1 GM ASDIR PRN TOPICAL (CKD) Hydroxyzine HCl (ATARAX) 25 MG Q6H PRN PRN PO Ibuprofen (IBUPROFEN 600 MG TAB) 600 MG Q6H PRN PRN PO Labetalol HCl (NORMODYNE 100 MG/20 ML VIAL) 20 MG ONCE PRN IV Labetalol HCl (NORMODYNE 100 MG/20 ML VIAL) 40 MG ASDIR PRN IV Labetalol HCl (NORMODYNE 100 MG/20 ML VIAL) 80 MG ASDIR PRN IV Loperamide HCl (LOPERAMIDE HCL 2 MG CAP) 4 MG ASDIR PRN PO Loperamide HCl (LOPERAMIDE HCL 2 MG CAP) 2 MG Q4H PRN PRN PO Magnesium Hydroxide (MILK OF MAGNESIA 30 ML UD) 30 ML BID PRN PRN PO Measles/Mumps/Rubella Vaccine Live (M-M-R II VACCINE W DILUENT) 0.5 ML ASDIR PRN SUBQ Methylergonovine Maleate (METHERGINE 0.2 MG/ML 1 ML AMP) 0.2 MG ASDIR PRN IM Misoprostol (CYTOTEC 200MCG TAB) 600 MCG ASDIR PRN PO Multi-Ingredient GI Drug (MAGNESIUM ALUMINUM HYDROXIDES 30ML ORAL SUSP) 30 ML Q4H PRN PRN PO Naloxone HCl (NALOXONE HCL 0.4 MG/ML 1 ML VIAL) 0.04 MG Q4H PRN PRN IV Naloxone HCl (NALOXONE HCL 0.4 MG/ML 1 ML VIAL) 0.08 MG Q4H PRN PRN IV Ondansetron Base (ZOFRAN ODT 4MG) 4 MG Q6H PRN PRN PO Ondansetron HCl (ZOFRAN 2 MG/ML 4 MG SYR) 4 MG Q6H PRN PRN IV Oxycodone HCl (OXYIR 5MG TAB) 5 MG Q4H PRN PRN PO Polyethylene Glycol (POLYETHYLENE GLYCOL PKT) 17 GM DAILY PRN PRN PO Promethazine HCl (Phenergan 25 MG) 25 MG Q6H PRN PRN IM Tranexamic Acid (Tranexamic Acid) 1,000 MG ASDIR PRN IV Sodium Chloride (SODIUM CHLORIDE 0.9% 100 mL MBP) 100 ML Witch Comfort/Glycerin (A-E-R) 1 APPLIC ASDIR PRN TOPICAL Simethicone (SIMETHICONE 80 MG TAB) 80 MG PC HS PRN PRN PO Oxytocin/Sodium Chloride (Oxytocin 15 units/NS 250 mL) 250 ML TITRATE IV (DC) Acetaminophen (TYLENOL EXTRA STRENGTH) 1,000 MG PREOP PRN PO (DC) Acetaminophen (ACETAMINOPHEN 325 MG TAB) 650 MG Q4H PRN PRN PO (DC) Al Hydrox/Mg Hydrox/Simethicone (MYLANTA 30 ML SUSP) 30 ML Q6H PRN PRN PO (DC) Butorphanol Tartrate (STADOL 2 MG/ML 1 ML) 2 MG Q4H PRN PRN IV (DC) Carboprost Tromethamine (HEMABATE 250 MCG/ML AMP) 250 MCG Q15M PRN PRN IM (DC) Cefazolin Sodium (ANCEF 2 GM VIAL) 2 GM PREOP IV (DC) Sodium Chloride (SODIUM CHLORIDE 0.9% 100 mL MBP) 100 ML Ephedrine Sulfate (ePHEDrine SULFATE 50 MG/ML 1ML AMP) 10 MG ASDIR PRN IV (DC) Hydralazine HCl (hydrALAZINE HCL 20MG) 10 MG ASDIR PRN IV (DC) Labetalol HCl (NORMODYNE 100 MG/20 ML VIAL) 20 MG ONCE PRN IV (DC) Labetalol HCl (NORMODYNE 100 MG/20 ML VIAL) 40 MG ASDIR PRN IV (DC) Labetalol HCl (NORMODYNE 100 MG/20 ML VIAL) 80 MG ASDIR PRN IV (DC) Lactated Ringer's (LACTATED RINGERS) 1,000 ML .Q8H IV (DC) Lactated Ringer's (LACTATED RINGERS) 250 ML ASDIR IV (DC) Lidocaine HCl (LIDOCAINE HCL 1% INJ 5 ML PF VIAL) DIRECTED ONCE PRN IV (DC) Loperamide HCl (LOPERAMIDE HCL 2 MG CAP) 4 MG ASDIR PRN PO (DC) Methylergonovine Maleate (METHERGINE 0.2 MG/ML 1 ML AMP) 0.2 MG ASDIR PRN IM (DC) Misoprostol (CYTOTEC 200MCG TAB) 1,000 MCG ASDIR PRN RECTAL (DC) Omeprazole/Sodium Bicarbonate (ZEGERID 20 MG CAPSULE) 2 CAP PREOP PRN PO (DC) Ondansetron HCl (ZOFRAN 2 MG/ML 4 MG SYR) 4 MG Q6H PRN PRN IV (DC) Ondansetron HCl (ZOFRAN 2 MG/ML 4 MG SYR) 4 MG PREOP PRN IV (DC) Oxytocin (Pitocin 10 units/1 mL Inj) 10 UNITS ONCE PRN IM (DC) Oxytocin/Sodium Chloride (Oxytocin 15 units/NS 250 mL) 250 ML ASDIR PRN IV (DC) Pharmacy Profile Note (EPIDURAL TRAY) 1 EA ASDIR MISC (DC) Promethazine HCl (Phenergan 25 MG) 25 MG Q4H PRN PRN IM (DC) Ropinirole HCl (Naropin 0.2% 200 mL) 200 ML ASDIR EPIDURAL (DC) Scopolamine (TRANSDERM-SCOP PATCH) 1 MG PREOP PRN TRANSDERM (DC) Sodium Chloride (SODIUM CHLORIDE 0.9% - 1000 ML) 1,000 ML ASDIR PRN IV ( DC) Terbutaline Sulfate (BRETHINE 1 MG/ML 1 ML AMP) 0.25 MG ONCE PRN SUBQ ( DC) Tranexamic Acid (Tranexamic Acid) 1,000 MG ASDIR PRN IV (DC) Sodium Chloride (SODIUM CHLORIDE 0.9% 100 mL MBP) 100 ML Zolpidem Tartrate (AMBIEN 5 MG UDTAB) 5 MG BEDTIME PRN PRN PO (DC) Loperamide HCl (LOPERAMIDE HCL 2 MG CAP) 2 MG Q4H PRN PRN PO (DC) Physical Exam Lungs: unlabored breathing Neuro: Exam: alert, oriented x3, normal speech, normal gait Abdomen: soft, no abnormal tenderness, no guarding, no rebound tenderness Fundus: firm, at the umbilicus, non-tender Lochia: normal Lacerations: Perineal laceration(s): 2nd Degree w/jerod muscles Lower extremities: Edema: 1+ pitting Results Findings/data: Laboratory Tests: 12/22 12/21 12/21 12/21 12/21 0548 2124 1807 1354 1306 Chemistry POC Glucose (65 - 110 mg/dL) 106 137 H 80 76 84 12/21 12/21 1221 1115 Chemistry POC Glucose (65 - 110 mg/dL) 100 Urines Urine Color (YELLOW) JARAD A Urine Appearance (CLEAR) Slightly-Cloudy Urine pH (5 - 9) 5.0 Ur Specific Butler (1.001 - 1.035) 1.031 Urine Protein (NEG) 3+ H Urine Glucose (UA) (NEG) NEGATIVE Urine Ketones (NEG) 1+ H Urine Blood (NEG) NEG Urine Nitrite (NEG) NEG Urine Bilirubin (NEG) NEGATIVE Urine Urobilinogen (NEG mg/dL) NEGATIVE Ur Leukocyte Esterase (NEG) TRACE H Urine RBC (NONE SEEN #/hpf) 11-15 H Urine WBC (NONE SEEN #/hpf) 3-5 H Ur Epithelial Cells (RARE - FEW #/HPF) RARE Urine Mucus (NONE SEEN) 4+ H Microbiology: Date/Time Procedure - Status Source Growth 12/21 1221 Urine Culture - RES URINE Diagnosis, Assessment Plan Diagnosis, Assessment Plan Problem List/A P: 1. Diabetes 2. Chronic hypertension Assessment: nml progress, chronic hypertension (not on meds), type II diabetes (sliding scale) Plan: routine care, discharge tomorrow, monitor to assess need for meds for CHTN or T2DM at 1008 RPT #:[id number] END OF REPORT [facility] 2023-12-23 08:13:00 [facility] ([facility]) MFM Consultation Note REPORT#:[id number] REPORT STATUS: Signed REPORT INITIALIZATION DATE:12/23/23 TIME: 812 PATIENT: JUSTINE DAHL UNIT #: [id number] ROOM/BED: : 02 AGE: 23 SEX: F ATTEND: Danuta Roberson MD ADM AUTHOR: Joshua Patten REPT SERVICE DT/TIME: 12/23/23812 * ALL edits or amendments must be made on the electronic/computer document * Joshua Patten 12/23/23 0813: History of Present Illness HPI Requesting clinician: Dr. Roberson Reason for consult: Suspected T2DM Chief complaint: Denies PCP: PCP: Danuta Roberson MD HPI: Ms. Dahl is a 23 yo s/p 12/21 in the presence of Suspected T2DM and CHTN. Ms. Dahl reports an early elevated 3-hour this and has been followed by MFM for suspected type 2 diabetes and managed with insulin this . Patient denies medication prior to . Patient reports feeling well this morning. She reports tolerating a regular diet and denies nausea and vomiting. She reports all glucose values are within goal. She states her fasting glucose value this morning was not as true value as she had recently eaten during the night and reports her value remained within goal. She denies pain. ObHx: #1-11/02/2022, 14 weeks, SAB, Misoprostol, mono di twins with TTS, folled by MFM at [facility] PMH: anemia, anxiety, asthma, depresion, chronic hypertension PSH: denies ALL: Benadryl, Reglan Social: denies t/e/d History Nursing Documentation Review Nursing data: The data set between the solid lines has been imported from nursing documentation. Any exceptions have been noted below under Provider comments. Prior history : 2 Para: 0 Term: : Abortions spontaneous: Abortions induced: Living children: Ectopic: Stillbirths: Live births: deaths: Number of previous C/S: Current data EDC: 01/03/24 EGA (weeks/days): 38.2 EGA at admit (weeks): EGA at delivery (weeks): 38 Steroids prior to arrival: Antibiotic prophylaxis given: ROM date: 12/22/23 ROM time: 818 Labor onset date: 12/22/23 Labor onset time: 815 Reported maternal labs/data Blood type: A Rh type: Rubella: Hepatitis B: Negative HIV exposure test: Negative VDRL: Sexually transmitted diseases: Gonorrhea: Negative Syphilis: Negative Herpes simplex type 1 2: Negative Chlamydia: Negative Condyloma: Human papillomavirus: Group B beta strep: Negative Rho(D) immune globulin this preg: Monitor mode - UA: [place] units: Feeding preference: Delivery data Delivery date A: 12/22/23 Delivery time infant A: 1638 Birthweight (gm) A: 3530 Weight (lb) infant A: Weight (oz) A: Gender A: Female 1 minute infant A: 5 minutes infant A: 10 minutes infant A: Cord pH obtained A: Vacuum time infant A: Vacuum # pulls infant A: Vacuum # popoffs infant A: Provider comments on imported nursing data: [] E (add'l data): The data set between the solid lines has been imported from nursing documentation. Any exceptions have been noted below under Provider comments. Delivery data Delivery date infant E: Delivery time E: Birthweight (gm) E: Weight (lb) E: Weight (oz) E: Gender infant E: 1 minute infant E: 5 minutes infant E: 10 minutes infant E: Cord pH obtained infant E: Vacuum time infant E: Vacuum # pulls E: Vacuum # popoffs E: Provider comments on imported nursing data: [] Past History Past medical history: asthma, depression, diabetes mellitus, anemia, CHTN, anxiety Past surgical history: denies PSH Past social history: does not smoke, no alcohol use, good social support Medications: Home Medications: Medication Dose/Rte/Freq Days Qty Entered Last Max Daily Dose Reviewed FERROUS SULFATE 325 MG PO DAILY 12/22/23 (FEOSOL) 0215 Strength: 325 MG (65 MG IRON) TAB [SEMGLEE] 12/22/23 Strength: PEN.INJCTR 0510 ALBUTEROL 12/22/23 (ALBUTEROL HFA 90 0609 MCG/ACT) Strength: 90 MCG INHALER INSULIN LISPRO 2 UNITS SUBQ BID 09/21/23 (HumaLOG KWIKPEN (3mL)) 1014 Strength: 100 UNIT/ML INSULN.PEN PNV WITH FE 1 TAB PO DAILY 09/21/23 FUMARATE/FA 1017 () Strength: 27 MG IRON-800 MCG TAB ASPIRIN 81 MG PO DAILY 09/21/23 Strength: 81 MG TAB.CHEW 1017 Current Hospital Medications: Anti-Infective Agents Sig/Josie Start time Last Medication Dose Route Stop Time Status Admin Cefazolin Sodium 2 GM PREOP 12/21 144 DC (ANCEF 2 GM VIAL) IV 02/20 144 Sodium Chloride 100 ML (SODIUM CHLORIDE 0.9% 100 mL MBP) Autonomic Drugs Sig/Josie Start time Last Medication Dose Route Stop Time Status Admin Ephedrine Sulfate 10 MG ASDIR PRN 12/21 144 DC (ePHEDrine SULFATE IV 02/20 144 50 MG/ML 1ML AMP) Terbutaline Sulfate 0.25 MG ONCE PRN 12/21 144 DC (BRETHINE 1 MG/ML 1 SUBQ ML AMP) Blood Formation,Coagulation Sig/Josie Start time Last Medication Dose Route Stop Time Status Admin Tranexamic Acid 1,000 MG ASDIR PRN 12/21 1744 AC (Tranexamic Acid) IV 02/19 1714 Sodium Chloride 100 ML (SODIUM CHLORIDE 0.9% 100 mL MBP) Tranexamic Acid 1,000 MG ASDIR PRN 12/21 144 DC (Tranexamic Acid) IV 02/20 144 Sodium Chloride 100 ML (SODIUM CHLORIDE 0.9% 100 mL MBP) Cardiovascular Drugs Sig/Josie Start time Last Medication Dose Route Stop Time Status Admin Hydralazine HCl 10 MG ASDIR PRN 12/21 1744 AC (hydrALAZINE HCL IV 20MG) Labetalol HCl 20 MG ONCE PRN 12/21 1744 AC (NORMODYNE 100 MG/20 IV ML VIAL) Labetalol HCl 40 MG ASDIR PRN 12/21 1744 AC (NORMODYNE 100 MG/20 IV ML VIAL) Labetalol HCl 80 MG ASDIR PRN 12/21 174 AC (NORMODYNE 100 MG/20 IV ML VIAL) Hydralazine HCl 10 MG ASDIR PRN 12/21 144 DC (hydrALAZINE HCL IV 20MG) Labetalol HCl 20 MG ONCE PRN 12/21 144 DC (NORMODYNE 100 MG/20 IV ML VIAL) Labetalol HCl 40 MG ASDIR PRN 12/21 144 DC (NORMODYNE 100 MG/20 IV ML VIAL) Labetalol HCl 80 MG ASDIR PRN 12/21 014 DC (NORMODYNE 100 MG/20 IV ML VIAL) Lidocaine HCl See Dose ONCE PRN 12/21 014 DC (LIDOCAINE HCL 1% Insts (1) IV INJ 5 ML PF VIAL) Central Nervous System Agents Sig/Josie Start time Last Medication Dose Route Stop Time Status Admin Acetaminophen 500 MG Q4H PRN PRN 12/21 1745 AC 12/22 (TYLENOL EXTRA PO 02/19 1714 0445 STRENGTH) Hydrocodone Bitart/ 1 TAB Q4H PRN PRN 12/21 1745 AC Acetaminophen PO 02/19 171 (NORCO 5/325 TABLET) Hydroxyzine HCl 25 MG Q6H PRN PRN 12/21 174 AC (ATARAX) PO 02/19 1714 Ibuprofen 600 MG Q6H PRN PRN 12/21 1745 AC 12/22 (IBUPROFEN 600 MG PO 02/19 171 0545 TAB) Naloxone HCl 0.04 MG Q4H PRN PRN 12/21 174 AC (NALOXONE HCL 0.4 MG/ IV 02/19 1714 ML 1 ML VIAL) Naloxone HCl 0.08 MG Q4H PRN PRN 12/21 174 AC (NALOXONE HCL 0.4 MG/ IV 02/19 1714 ML 1 ML VIAL) Oxycodone HCl 5 MG Q4H PRN PRN 12/21 174 AC (OXYIR 5MG TAB) PO 02/19 1714 Promethazine HCl 25 MG Q6H PRN PRN 12/21 1745 AC (Phenergan 25 MG) IM 02/19 1714 Acetaminophen 1,000 MG PREOP PRN 12/21 014 DC (TYLENOL EXTRA PO STRENGTH) Acetaminophen 650 MG Q4H PRN PRN 12/21 014 DC (ACETAMINOPHEN 325 PO 02/19 0144 MG TAB) Butorphanol Tartrate 2 MG Q4H PRN PRN 12/21 014 DC (STADOL 2 MG/ML 1 ML) IV 02/20 144 Promethazine HCl 25 MG Q4H PRN PRN 12/21 014 DC (Phenergan 25 MG) IM 02/20 144 Zolpidem Tartrate 5 MG BEDTIME PRN PRN 12/21 014 DC (AMBIEN 5 MG UDTAB) PO Electrolytic, Caloric, And Kwasi Sig/Josie Start time Last Medication Dose Route Stop Time Status Admin Lactated Ringer's 1,000 ML .[id number] 12/21 1800 AC 12/21 (LACTATED RINGERS) IV 02/19 175 1816 Dextrose 37.5 ML Q15M PRN PRN 12/21 174 AC (Glutose-15 (40%)) BUCCAL 02/19 171 Dextrose/Water 50 ML ASDIR PRN 12/21 174 CKD (DEXTROSE 50% IN IV 02/19 171 WATER 50 ML SYR) Lactated Ringer's 1,000 ML .Q8H 12/21 0145 DC 12/21 (LACTATED RINGERS) IV 02/19 0144 1027 Lactated Ringer's 250 ML ASDIR 12/21 0145 DC 12/21 (LACTATED RINGERS) IV 02/19 0144 1140 Sodium Chloride 1,000 ML ASDIR PRN 12/21 0145 DC (SODIUM CHLORIDE IV 0.9% - 1000 ML) Eye, Ear, Nose And Throat (Een Sig/Josie Start time Last Medication Dose Route Stop Time Status Admin Benzocaine 1 APPLIC DAILY PRN PRN 12/21 174 CKD 12/21 (AMERICAINE) TOPICAL 02/19 171 1817 Benzocaine/Menthol 1 EACH ASDIR PRN 12/21 174 CKD (Chloraseptic Sore MM 02/19 171 Throat Lozng) Gastrointestinal Drugs Sig/Josie Start time Last Medication Dose Route Stop Time Status Admin Docusate Sodium 100 MG Q12HR 12/21 2100 AC 12/22 (DOCUSATE SODIUM 100 PO 02/19 2059 0819 MG CAP) Loperamide HCl 4 MG ASDIR PRN 12/21 174 AC (LOPERAMIDE HCL 2 MG PO CAP) Loperamide HCl 2 MG Q4H PRN PRN 12/21 174 AC (LOPERAMIDE HCL 2 MG PO CAP) Magnesium Hydroxide 30 ML BID PRN PRN 12/21 174 AC (MILK OF MAGNESIA 30 PO 02/19 1714 ML UD) Misoprostol 600 MCG ASDIR PRN 12/21 174 AC (CYTOTEC 200MCG TAB) PO 02/19 171 Multi-Ingredient GI 30 ML Q4H PRN PRN 12/21 1745 AC Drug PO 02/19 171 (MAGNESIUM ALUMINUM HYDROXIDES 30ML ORAL SUSP) Ondansetron Base 4 MG Q6H PRN PRN 12/21 1744 AC (ZOFRAN ODT 4MG) PO 02/19 1714 Ondansetron HCl 4 MG Q6H PRN PRN 12/21 1744 AC (ZOFRAN 2 MG/ML 4 MG IV 02/19 1714 SYR) Polyethylene Glycol 17 GM DAILY PRN PRN 12/21 1744 AC (POLYETHYLENE GLYCOL PO 02/19 1714 PKT) Simethicone 80 MG PC HS PRN PRN 12/21 1714 AC (SIMETHICONE 80 MG PO 02/19 1714 TAB) Al Hydrox/Mg Hydrox/ 30 ML Q6H PRN PRN 12/21 014 DC Simethicone PO 02/20 144 (MYLANTA 30 ML SUSP) Loperamide HCl 4 MG ASDIR PRN 12/21 144 DC (LOPERAMIDE HCL 2 MG PO CAP) Misoprostol 1,000 MCG ASDIR PRN 12/21 144 DC (CYTOTEC 200MCG TAB) RECTAL 02/20 144 Misoprostol 50 MCG Q4H 12/21 014 DC 12/21 (CYTOTEC 25 MCG PO 12/21 0946 0400 TABLET) Omeprazole/Sodium 2 CAP PREOP PRN 12/21 014 DC Bicarbonate PO (ZEGERID 20 MG CAPSULE) Ondansetron HCl 4 MG Q6H PRN PRN 12/21 014 DC 12/21 (ZOFRAN 2 MG/ML 4 MG IV 02/20 144 1027 SYR) Ondansetron HCl 4 MG PREOP PRN 12/21 144 DC (ZOFRAN 2 MG/ML 4 MG IV SYR) Scopolamine 1 MG PREOP PRN 12/21 144 DC (TRANSDERM-SCOP TRANSDERM PATCH) Loperamide HCl 2 MG Q4H PRN PRN 12/22 143 DC (LOPERAMIDE HCL 2 MG PO CAP) Hormones And Synthetic Substit Sig/Josie Start time Last Medication Dose Route Stop Time Status Admin Insulin Human Lispro See Dose PC HS 12/21 2129 AC 12/21 (HumaLOG 3ML VIAL) Insts (2) SUBQ 02/19 Glucagon 1 MG ASDIR PRN 12/21 1744 AC (GLUCAGON 1 MG/VIAL) IM 08/19 1714 Local Anesthetics (Parenteral) Sig/Josie Start time Last Medication Dose Route Stop Time Status Admin Bupivacaine HCl 30 ML .STK-MED ONE 12/22 0017 DC (SENSORCAINE PF ZCHARGE 12/22 0018 0.25% 30 ML) Ropinirole HCl 200 ML ASDIR 12/21 0145 DC 12/21 (Naropin 0.2% 200 mL) EPIDURAL 12/23 0142 1141 Oxytocics Sig/Josie Start time Last Medication Dose Route Stop Time Status Admin Oxytocin/Sodium 250 ML .STK-MED ONE 12/21 1828 DC Chloride INJ (Oxytocin 15 units/ NS 250 mL) Carboprost 250 MCG Q15M PRN PRN 12/21 174 AC Tromethamine IM 01/20 174 (HEMABATE 250 MCG/ML AMP) Methylergonovine 0.2 MG ASDIR PRN 12/21 174 AC Maleate IM (METHERGINE 0.2 MG/ ML 1 ML AMP) Oxytocin/Sodium 250 ML TITRATE 12/21 0900 DC 12/21 Chloride IV 01/04 0859 1027 (Oxytocin 15 units/ NS 250 mL) Carboprost 250 MCG Q15M PRN PRN 12/21 014 DC Tromethamine IM (HEMABATE 250 MCG/ML AMP) Methylergonovine 0.2 MG ASDIR PRN 12/21 014 DC Maleate IM (METHERGINE 0.2 MG/ ML 1 ML AMP) Oxytocin 10 UNITS ONCE PRN 12/21 014 DC (Pitocin 10 units/1 IM mL Inj) Oxytocin/Sodium 250 ML ASDIR PRN 12/21 014 DC Chloride IV 01/04 0144 (Oxytocin 15 units/ NS 250 mL) Respiratory Tract Agents Sig/Josie Start time Last Medication Dose Route Stop Time Status Admin Guaifenesin/ 10 ML Q4H PRN PRN 12/21 174 AC Dextromethorphan PO 02/19 1714 (guaiFENesin W DM 10 ML UD) Serums, Toxoids, And Vaccines Sig/Josie Start time Last Medication Dose Route Stop Time Status Admin Measles/Mumps/ 0.5 ML ASDIR PRN 12/21 174 AC Rubella Vaccine Live SUBQ 02/19 1714 (M-M-R II VACCINE W DILUENT) Skin And Mucous Membrane Agent Sig/Josie Start time Last Medication Dose Route Stop Time Status Admin Hydrocortisone/ 1 GM ASDIR PRN 12/21 1745 CKD Pramoxine TOPICAL 02/19 171 (ANALPRAM HC 2.5% CRM SINGLES) Witch Comfort/Glycerin 1 APPLIC ASDIR PRN 12/21 1745 AC (A-E-R) TOPICAL 02/19 171 Vitamins Sig/Josie Start time Last Medication Dose Route Stop Time Status Admin Multivit/ 1 TAB DAILY 12/22 0900 AC 12/22 Folic Acid/Iron PO 02/20 0859 0819 ( Vitamin Tablet) Other Sig/Josie Start time Last Medication Dose Route Stop Time Status Admin Pharmacy Profile Note 1 EA ASDIR 12/21 0145 DC (EPIDURAL TRAY) MISC 12/28 0144 Dose Instructions: (1)Lidocaine HCl (LIDOCAINE HCL 1% INJ 5 ML PF VIAL): DIRECTED (2)Insulin Human Lispro (HumaLOG 3ML VIAL): SEE SLIDING SCALE (Admin Criteria) FASTING AND 2 HOURS POST PRANDIAL Allergies: Coded Allergies: diphenhydramine (From BENADRYL) (Mild, KIDNEY ISSUE 12/22/23) metoclopramide (From REGLAN) (Mild, AGGRESIVE 12/22/23) Review of Systems ROS Respiratory: Denies: JEAN (dyspnea on exertion), SOB. GI: Denies: abdominal pain, nausea, vomiting. : Denies: vaginal bleeding. Objective Physical Exam VS/I O: Last Documented: Result Date Time B/P Mean 98.0 12/22 0505 Pulse Ox 96 12/22 0505 B/P 126/85 12/22 0505 Temp 97.4 12/22 0505 Pulse 109 12/22 0505 Resp 18 12/22 0505 24 hour I O ending at 0700: 12/22 0700 12/21 1900 Intake Total 3625.00 Output Total 100.00 700.00 Balance -100.00 2925.00 Intake, Other 3625.00 Output, Other 100.00 700.00 PATIENT WEIGHT: Weight (lb): 258 Weight (oz): Weight (kg): 117.300 Respiratory: no distress, aerating well, symmetric expansion Extremities: full range of motion, moves all Results Findings/Data: Laboratory Tests 12/22 12/21 12/21 12/21 12/21 0548 2124 1807 1354 1306 Chemistry POC Glucose (65 - 110 mg/dL) 106 137 H 80 76 84 12/21 12/21 1115 0845 Chemistry POC Glucose (65 - 110 mg/dL) 100 104 Laboratory Tests 12/21 1221 Urines Urine Color (YELLOW) JARAD A Urine Appearance (CLEAR) Slightly-Cloudy Urine pH (5 - 9) 5.0 Ur Specific Butler (1.001 - 1.035) 1.031 Urine Protein (NEG) 3+ H Urine Glucose (UA) (NEG) NEGATIVE Urine Ketones (NEG) 1+ H Urine Blood (NEG) NEG Urine Nitrite (NEG) NEG Urine Bilirubin (NEG) NEGATIVE Urine Urobilinogen (NEG mg/dL) NEGATIVE Ur Leukocyte Esterase (NEG) TRACE H Urine RBC (NONE SEEN #/hpf) 11-15 H Urine WBC (NONE SEEN #/hpf) 3-5 H Ur Epithelial Cells (RARE - FEW #/HPF) RARE Urine Mucus (NONE SEEN) 4+ H Diagnosis, Assessment Plan Diagnosis, Assessment Plan Problem List/A P: 1. Chronic hypertension 2. Diabetes Free Text A P: Ms. Dahl is a 23 yo s/p 12/21 in the presence of suspected type 2 diabetes and chronic hypertension. 1. Suspected type 2 diabetes Glucose values reviewed: (12/22): Fastin (12/21): 76, 80, 84, 137 -Recommend discontinuing insulin , follow glucose values for fasting goal <126 and 2 hours postprandial <140. -Recommend a 2 hour GTT on the day of discharge to determine the presence of overt diabetes. -Counseled patient on the importance of annual follow up with a Primary Care Provider for continued monitoring. 2. Care -Pain well controlled with oral medication -Tolerating PO diet Thank you for the opportunity to participate in her care. Will sign off at this time. A total of 20 minutes were spent [id number] with the patient during this encounter and over half of that time was spent on counseling and coordination of care. Jozef Agee 12/23/23 1318: Attestations Attestation needed: supervising physician Physician Attestation Agree w/findings plan: Ms. Dahl was seen and evaluated by me and I Agree with the findings and plan as documented by Ms. Joshua Patten STRIP FEEDER-C and co-authored by me. Ms Dahl with all normal non glucose values; plan in place and order read for 2 hr GTT tomorrow morning. If abnormal= she may follow up with her PCP/ Chemical Laboratory Tester. Jozef Agee MD at 1243 at 1343 RPT #:[id number] END OF REPORT [facility] 2023-12-22 17:06:00 [facility] ([facility]) OB Delivery Note REPORT#:[id number] REPORT STATUS: Signed REPORT INITIALIZATION DATE:12/22/23 TIME: 1705 PATIENT: JUSTINE DAHL UNIT #: [id number] ROOM/BED: : 02 AGE: 23 SEX: F ATTEND: Danuta Roberson MD ADM AUTHOR: Danuta Roberson MD REPT SERVICE DT/TIME: 12/22/231705 * ALL edits or amendments must be made on the electronic/computer document * OB Delivery Nursing Documentation Review Nursing data: The data set between the solid lines has been imported from nursing documentation. Any exceptions have been noted below under Provider comments. _ ROM date: 12/22/23 ROM time: 818 Membranes rupture method: AROM Amniotic fluid color: Clear Amniotic fluid amount: Steroids prior to arrival: Antibiotic prophylaxis given: Post hemorrhage risk score: MedRisk Delivery date A: 12/22/23 Delivery time A: 1638 Birthweight (gm) infant A: 3530 Weight (lb) infant A: Weight (oz) infant A: Gender infant A: Female 1 minute infant A: 5 minutes infant A: 10 minutes A: Cord pH obtained A: Vacuum time infant A: Vacuum # pulls A: Vacuum # popoffs A: QBL at delivery: 300 __ Provider comments on imported nursing data: [] Pre-delivery GBS status: GBS status: negative [place] evaluation at delivery: NRP certified personnel Admission EGA: Weeks: 38 Days: 2 EGA at delivery (wks/days): 38 weeks Admission indication: T2DM, cHTN Blood Loss/Details Blood loss at delivery: <1K: no sx hypovol=no hem, no more than expected EBL at delivery (ml's): 250 Baby A Information Baby A information Delivery date: 12/22/23 Delivery time: 1638 status: live born Wt of baby (grams): 3530 Gender: female 1 minute: 8 5 minutes: 8 Presentation: vertex ABG details Baby A Cord blood gases: not collected Nuchal cord Baby A Nuchal cord: no Additional comments: Called to room for patient complete and pushing. Patient delivered a viable female infant over an intact perineum from MICHELLE presentation. Anterior shoulder delivered with gentle downward traction followed by posterior shoulder and body. Infant placed on maternal abdomen. Cord clamped x2 and cut after 60 second delay. Placenta delivered with gentle traction, intact, sent to pathology. IV pitocin and fundal massage initated with good uterine tone. Laceration: 2nd degree Suture: 3-0 vicryl EBL 250cc Mother and stable in delivery room. Vaginal Delivery Vaginal Delivery Vaginal delivery: Labor: induced Medications/Devices used: oxytocin, cytotec, mechanical dilator Vaginal delivery: spontaneous Lacerations: Perineal laceration(s): 2nd Degree w/jerod muscles at 0815 RPT #:[id number] END OF REPORT [facility] 2023-12-22 11:55:00 [id number] [facility] [address] [place], [place] [address] PATIENT NAME: JUSTINE DAHL ADMIT DATE: 12/22/23 ACCOUNT NO: [id number] ROOM NO: 2023 AGE: 23 SEX: F ADMITTING PHYSICIAN: Danuta Roberson MD ATTENDING PHYSICIAN: Danuta Roberson MD Order: [id number] Test Reason : TACHYCARDIA - DURING LABOR Test Date/Time Stamp: TueDec 22 2023 11:55:00 Blood Pressure : / mmHG Vent. Rate : 118 BPM Atrial Rate : 118 BPM P-R Int : 138 ms QRS Dur : 070 ms QT Int : 324 ms P-R-T Axes : 057 017 048 degrees QTc Int : 454 ms Sinus tachycardia Otherwise normal ECG When compared with ECG of 08-DEC-2023 17:21, No significant change was found Confirmed by CHRISTA PIKE MD ([id number]) on 12/23/2023 7:33:01 AM Referred By: Danuta Roberson Confirmed by:CHRISTA PIKE MD at 0733 PATIENT NAME: JUSTINE DAHL [facility] 2023-12-22 08:27:00 [facility] ([facility]) OB Intrapart Prog Note REPORT#:[id number] REPORT STATUS: Signed REPORT INITIALIZATION DATE:12/22/23 TIME: 826 PATIENT: JUSTINE DAHL UNIT #: [id number] ROOM/BED: [address] : 02 AGE: 23 SEX: F ATTEND: Danuta Roberson MD ADM AUTHOR: Danuta Roberson MD REPT SERVICE DT/TIME: 12/22/23826 * ALL edits or amendments must be made on the electronic/computer document * Subjective Subjective Current EGA: Current EGA(wks): 38 Current EGA(days): 2 Patient reports: Patient reports: Yes: contractions, normal movement. No: vaginal bleeding, leaking fluid. Free Text Subj Notes Free Text Subj Notes: balloon fell out while using bathroom Objective Nursing Documentation Review Nursing data: The data set between the solid lines has been imported from nursing documentation. Any exceptions have been noted below under Provider comments. __ ROM date: ROM time: __ Provider comments on imported nursing data: [] General VS: Last Documented: Result Date Time Pulse Ox 98 / 0741 Pulse 110 / 0741 B/P Mean 111.0 12/21 0734 B/P 143/91 12/21 0734 Temp 98.1 12/21 0734 Resp 16 12/21 0734 Vital Signs Date Temp Pulse Resp B/P B/P Mean Pulse Ox FiO2 12/21 98.1 105-112 16-17 121-143/73-102 92.0-115.0 98-99 PATIENT WEIGHT: Weight (lb): 258 Weight (oz): Weight (kg): 117.300 Objective Cervical/ exam: Dilatation (cm): 7 Effacement (%): 70 station: - 2 Pelvis exam: Clinically adequate for this fetus: yes Uterine activity: Monitor: toco Frequency (description): irregular Procedures: vaginal exam FHR Evaluation Baby A: Baby A baseline: 150 bpm Baby A variability: moderate 6-25 bpm Baby A accelerations: 15 X 15 Baby A decelerations: variable Baby A FHR category: category 2 (overall reassuring) Result Findings/Data: Laboratory Tests: 12/21 12/21 0634 0153 Chemistry Sodium (136 - 145 mEq/L) 136 Potassium (3.4 - 4.5 mEQ/L) 4.4 Chloride (98 - 107 mEq/L) 108 H Carbon Dioxide (22 - 31 mEq/L) 20 L Anion Gap (10 - 20) 12.4 BUN (8 - 23 mg/dL) 7 L Creatinine (0.55 - 1.02 mg/dL) 0.4 L Glomerular Filtr Rate (>60 ml/min) 144.32 Glucose (74 - 106 mg/dL) 92 POC Glucose (65 - 110 mg/dL) 109 Uric Acid (3.1 - 7.8 mg/dL) 3.8 Calcium (8.3 - 10.6 mg/dL) 8.8 Total Bilirubin (0.3 - 1.2 mg/dL) 0.3 AST (< 34 units/L) 14 ALT (10 - 49 units/L) 12 Total Alk Phosphatase (46 - 116 units/L) 195 H Lactate Dehydrogenase (120 - 246 units/L) 188 Total Protein (5.7 - 8.2 g/dL) 5.9 Albumin (3.2 - 4.8 g/dL) 3.6 Hematology WBC (6.5 - 12.3 K/mm3) 13.8 H RBC (3.51 - 4.69 M/mm3) 4.19 Hgb (10.1 - 13.8 g/dL) 9.7 L Hct (32.5 - 41.8 %) 30.7 L MCV (84.6 - 96.6 fL) 73.3 L MCH (27.3 - 33.9 pg) 23.2 L MCHC (32.0 - 34.2 gm/dL) 31.6 L RDW (12.2 - 16.3 %) 14.7 Plt Count (134 - 363 K/mm3) 407 H MPV (9.2 - 12.7 fL) 9.5 Neut % (Auto) (57.9 - 77.3 %) 70.8 Lymph % (Auto) (14.5 - 29.7 %) 20.7 Catron % (Auto) (3.6 - 10.2 %) 6.4 Eos % (Auto) (0.0 - 3.0 %) 0.3 Baso % (Auto) (0.1 - 0.9 %) 0.4 Neut # (Auto) (K/mm3) 9.8 Lymph # (Auto) (K/mm3) 2.9 Catron # (Auto) (K/mm3) 0.9 Eos # (Auto) (K/mm3) 0.04 Baso # (Auto) (K/mm3) 0.1 Serology Treponema pallidum Ab (NONREACTIVE) NONREACTIVE Hep Bs Antigen (NONREACTIVE) NONREACTIVE Hepatitis C Antibody (NONREACTIVE) NONREACTIVE Hep C Ab Signal/Cutoff (<0.80) 0.06 HIV 1 2 Antibody (NONREACTIVE) NONREACTIVE Urines Ur Random Creatinine (mg/dL) 167 U Random Total Protein (mg/dL) 52 Protein/Creatinin Ratio (<200 mg/gcrea) 311.4 H Diagnosis, Assessment Plan Free Text A P: 23 y/o at 38w2d here for IOL for cHTN, T2DM 1. Labor: Cook balloon expelled spontaneously, s/p 1 dose of cytotec. Will start pitocin and AROM next check. 2. Pain control: IV pain meds or epidural prn, natural birthing methods for now 3. cHTN (no meds) - pre-E labs normal on admit except elevated Pr:Cr ratio. Will monitor. Labetalol protocol prn. Normal BPs at this time 4. T2DM - 4U long-acting qAM, 16U short-acting with meals. Insulin drip protocol during active labor 5. GBS neg at 0845 RPT #:[id number] END OF REPORT [facility] 2023-12-22 03:43:00 [facility] ([facility]) OB Intrapart Prog Note REPORT#:[id number] REPORT STATUS: Signed REPORT INITIALIZATION DATE:12/22/23 TIME: 342 PATIENT: JUSTINE DAHL UNIT #: [id number] ROOM/BED: [address] : 02 AGE: 23 SEX: F ATTEND: Danuta Roberson MD ADM AUTHOR: Johnson Sanders MD REPT SERVICE DT/TIME: 12/22/23 0343 * ALL edits or amendments must be made on the electronic/computer document * Subjective Subjective Current EGA: Current EGA(wks): 38 Current EGA(days): 2 Patient reports: Patient reports: No: complaints. Objective Nursing Documentation Review Nursing data: The data set between the solid lines has been imported from nursing documentation. Any exceptions have been noted below under Provider comments. __ ROM date: ROM time: __ Provider comments on imported nursing data: [] General VS: Last Documented: Result Date Time B/P Mean 92.0 12/21 0159 B/P 121/73 12/21 0159 Pulse 109 12/21 0159 Resp 17 12/21 0032 Vital Signs Date Temp Pulse Resp B/P B/P Mean Pulse Ox FiO2 12/21 109 17 121/73 92.0 PATIENT WEIGHT: Weight (lb): Weight (oz): Weight (kg): 117.559437 Objective Cervical/ exam: Dilatation (cm): 2 Effacement (%): 70 station: - 3 Uterine activity: Monitor: toco Frequency (description): irritability Procedures: Cook balloon placement FHR Evaluation Baby A: Baby A baseline: 150 bpm Baby A variability: moderate 6-25 bpm Baby A accelerations: 15 X 15 Baby A decelerations: none Result Findings/Data: Laboratory Tests: 12/21 0153 Chemistry Sodium (136 - 145 mEq/L) 136 Potassium (3.4 - 4.5 mEQ/L) 4.4 Chloride (98 - 107 mEq/L) 108 H Hematology WBC (6.5 - 12.3 K/mm3) 13.8 H RBC (3.51 - 4.69 M/mm3) 4.19 Hgb (10.1 - 13.8 g/dL) 9.7 L Hct (32.5 - 41.8 %) 30.7 L MCV (84.6 - 96.6 fL) 73.3 L MCH (27.3 - 33.9 pg) 23.2 L MCHC (32.0 - 34.2 gm/dL) 31.6 L RDW (12.2 - 16.3 %) 14.7 Plt Count (134 - 363 K/mm3) 407 H MPV (9.2 - 12.7 fL) 9.5 Neut % (Auto) (57.9 - 77.3 %) 70.8 Lymph % (Auto) (14.5 - 29.7 %) 20.7 Catron % (Auto) (3.6 - 10.2 %) 6.4 Eos % (Auto) (0.0 - 3.0 %) 0.3 Baso % (Auto) (0.1 - 0.9 %) 0.4 Neut # (Auto) (K/mm3) 9.8 Lymph # (Auto) (K/mm3) 2.9 Catron # (Auto) (K/mm3) 0.9 Eos # (Auto) (K/mm3) 0.04 Baso # (Auto) (K/mm3) 0.1 Urines Ur Random Creatinine (mg/dL) 167 U Random Total Protein (mg/dL) 52 Protein/Creatinin Ratio (<200 mg/gcrea) 311.4 H Diagnosis, Assessment Plan Free Text A P: 23 y/o at 38w2d here for IOL for cHTN, T2DM 1. Labor: Cook balloon 80/80 placed. Will give cytotec 2. Pain control: IV pain meds or epidural prn 3. cHTN (no meds) - pre-E labs pending. Labetalol protocol prn. Normal BPs at this time 4. T2DM - 4U long-acting qAM, 10/10/15U short-acting with meals. Insulin drip protocol during labor 5. GBS neg at 0347 RPT #:[id number] END OF REPORT [facility] 2023-12-15 10:33:00 [facility] ([facility]) OB Admission / H P REPORT#:[id number] REPORT STATUS: Signed REPORT INITIALIZATION DATE:12/15/23 TIME: 103 PATIENT: JUSTINE DAHL UNIT #: [id number] ROOM/BED: : 02 AGE: 23 SEX: F ATTEND: Danuta Roberson MD ADM AUTHOR: Danuta Roberson MD REPT SERVICE DT/TIME: 12/15/23 1033 * ALL edits or amendments must be made on the electronic/computer document * OB History Chief complaint: scheduled induction HPI: 23 y/o at 38w1d here for scheduled induction of labor for type 2 diabetes on insulin. Patient also has a history of chronic hypertension but is not on medication. Denies bleeding, loss of fluid or painful contractions. Good movement. history: : 2 Term: 0 : 0 Abortus: 1 Living children: 0 Current : Best EDC: 01/03/24 Admission EGA (weeks) 38 Admission EGA (days) 1 EDC based on: ultrasound, 1st trimester Conditions of : diabetes - pre-existing, HTN - chronic, BMI > 40, anxiety, asthma Labs: Blood type: A Rh: positive Rubella: immune Hepatitis B: negative HIV: negative STD: negative Syphilis: currently negative GBS: negative Procedures: biophysical profile, ultrasound, genetic testing Genetic testing: NIPT Past History Past Medical History: Reports: Asthma, Diabetes mellitus, Hypertension. Additional Medical History: anxiety Additional Surgical History: ear tubes Family History Reports: Diabetes, Heart disease, Hypertension. Alcohol Use Denies EtOH use Drug Use Denies recreational drugs Allergies: Coded Allergies: diphenhydramine (From BENADRYL) (Mild, KIDNEY ISSUE 12/05/23) metoclopramide (From REGLAN) (Mild, AGGRESIVE 12/05/23) Review of Systems : Reports: pelvic pain, . Denies: urgency, urinary retention, vaginal bleeding. Objective General VS: PATIENT WEIGHT: Weight (lb): Weight (oz): Weight (kg): Physical Exam HEENT: normocephalic w/o injury, pupils equal, no apparent hearing diff Cardiac: regular rate Lungs: unlabored breathing Breasts: deferred Neuro: Exam: alert, oriented x3, normal speech, normal gait Abdomen: gravid, soft, no abnormal tenderness, no guarding Uterine activity: Monitor: toco Pelvic exam: Pelvis clinically adequate: yes Cervical/ exam: Dilatation (cm): 1 Effacement (%): 30 Est wt (gms): 3500 Suspected macrosomia: No station: - 3 Membranes: Membranes: Intact Lower extremities: Edema: trace Diagnosis, Assessment Plan Diagnosis, Assessment Plan Free Text A P: 23 y/o at 38w1d here for IOL for cHTN, T2DM -admit to L D - for dual ripening with cook balloon and cytotec -IV pain meds or epidural prn -cHTN (no meds) - pre-E labs on admission. Labetalol protocol prn. -T2DM - 4U long-acting qAM, 16U short-acting with meals. Recommend insulin drip during labor to optimize glycemic control. 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 Rate : 127 BPM Atrial Rate : 127 BPM P-R Int : 130 ms QRS Dur : 068 ms QT Int : 300 ms P-R-T Axes : 054 023 043 degrees QTc Int : 436 ms Sinus tachycardia Low voltage QRS Borderline ECG No previous ECGs available Confirmed by CHRISTA PIKE MD ([id number]) on 12/09/2023 5:26:44 PM Referred By: Danuta Roberson Confirmed by:CHRISTA PIKE MD at 1726 PATIENT NAME: JUSTINE DAHL [facility] 2023-12-05 22:37:00 [facility] ([facility]) L[facility]LA Evaluation Note REPORT#:[id number] REPORT STATUS: Signed REPORT INITIALIZATION DATE:12/05/23 TIME: 2236 PATIENT: JUSTINE DAHL UNIT #: [id number] ROOM/BED: : 02 AGE: 23 SEX: F ATTEND: Danuta Roberson MD ADM DT: AUTHOR: Lia Manrique MD REPT SERVICE DT/TIME: 12/05/232236 * ALL edits or amendments must be made on the electronic/computer document * LAYLA History HPI: 23yo at 35w6d who presents today for leaking fluid at 1700. +FM. Denies VB. Reports uncomfortable tightening/contractions. GDM this on insulin. Past medical history: gestational diabetes Medications: Home Medications: Medication Dose/Rte/Freq Days Qty Entered Last Max Daily Dose Reviewed INSULIN LISPRO 2 UNITS SUBQ BID 09/21/23 (HumaLOG KWIKPEN (3mL)) 1014 Strength: 100 UNIT/ML INSULN.PEN PNV WITH FE 1 TAB PO DAILY 09/21/23 FUMARATE/FA 1017 () Strength: 27 MG IRON-800 MCG TAB ASPIRIN 81 MG PO DAILY 09/21/23 Strength: 81 MG TAB.CHEW 1017 ACETAMINOPHEN/CODEINE 1-2 TAB PO 15 10/30/23 (TYLENOL WITH CODEINE Q4H PRN PRN ACUTE 1237 #3 300/30 MG) PAIN Strength: 300 MG-30 MG TAB Allergies Coded Allergies: diphenhydramine (From BENADRYL) (Mild, KIDNEY ISSUE 12/05/23) metoclopramide (From REGLAN) (Mild, AGGRESIVE 12/05/23) Review of Systems All systems rev neg: except as marked Objective General VS: Last Documented: Result Date Time Pulse Ox 98 12/04 2154 Pulse 119 12/04 2155 B/P Mean 106.0 12/04 2150 B/P 137/85 12/04 215 Vital Signs Date Temp Pulse Resp B/P B/P Mean Pulse Ox FiO2 12/04 119-123 137/85 106.0 98 PATIENT WEIGHT: Weight (lb): Weight (oz): Weight (kg): 117.791101 Physical Exam HEENT: normocephalic w/o injury, pupils equal Cardiac: regular rate and rhythm Lungs: clear to auscultation Abdomen: gravid, no abnormal tenderness, no guarding Uterine activity: Monitor: toco Frequency (description): none Cervical/ exam: Dilatation (cm): 0 - closed Effacement (%): 0 station: - 3 FHR evaluation: Baseline: 140 bpm Variability: moderate 6-25 bpm Accelerations: 15 X 15 Decelerations: none FHR category: category 1 Membranes: Membranes: Intact Results Findings/Data: Laboratory Tests: 12/04 2156 Other Body Source Membranes Rupture NON-RUPTURED Diagnosis, Assessment Plan Diagnosis, Assessment Plan Free Text A P: 23yo at 35w6d not ruptured - Labor precautions - Keep OB appointment at 2244 RPT #:[id number] END OF REPORT [facility] 2023-10-30 10:57:00 [facility] ([facility]) LAYLA Evaluation Note REPORT#:[id number] REPORT STATUS: Signed REPORT INITIALIZATION DATE:10/30/23 TIME: 1056 PATIENT: JUSTINE DAHL UNIT #: [id number] ROOM/BED: : 02 AGE: 23 SEX: F ATTEND: Danuta Roberson MD ADM DT: AUTHOR: Alek Garcia MD REPT SERVICE DT/TIME: 10/30/23 1057 * ALL edits or amendments must be made on the electronic/computer document * LAYLA History HPI: 23 yo IUP 30w5d reports left flank pain and increased urinary frequency denies fever or malaise bs control is 170-200 pp after adjustments this past week w mfm she reports similar symptoms in the past and was dx with a uti denies VB, LOF or UC's +FM history: : 2 Term: 0 Abortus: 1 Living children: 0 Past medical history: diabetes mellitus Past surgical history: denies PSH Social history: no alcohol use, no tobacco use, no drug use Allergies Coded Allergies: diphenhydramine (From BENADRYL) (Mild, KIDNEY ISSUE 09/21/23) metoclopramide (From REGLAN) (Mild, AGGRESIVE 09/21/23) Review of Systems Constitutional: Denies: fatigue, fever, malaise. Respiratory: Denies: non productive cough, SOB. Cardiovascular: Denies: chest pain, palpitations. GI: Denies: nausea, vomiting. : Reports: . Denies: pelvic pain, vaginal bleeding, vaginal discharge. Objective General VS: Last Documented: Result Date Time Pulse Ox 97 10/29 1056 Pulse 115 10/29 1056 B/P Mean 97.0 10/29 1032 B/P 123/81 10/29 1032 Temp 97.8 10/29 1032 Resp 17 10/29 1032 Vital Signs Date Temp Pulse Resp B/P B/P Mean Pulse Ox FiO2 10/29 97.8 107-115 17 123/81 97.0 97-98 PATIENT WEIGHT: Weight (lb): 254 Weight (oz): Weight (kg): 115.500 Physical Exam Cardiac: regular rate and rhythm Lungs: unlabored breathing Neuro: Exam: alert, oriented x3 Abdomen: gravid, soft Musculoskeletal: CVA tenderness (mild cva tenderness on the lef) Uterine activity: Monitor: toco FHR evaluation: Baseline: 140 bpm Variability: moderate 6-25 bpm Decelerations: none FHR category: category 1 Membranes: Membranes: Intact Results Findings/Data: Laboratory Tests: 10/29 1026 Urines Urine Color (YELLOW) YELLOW Urine Appearance (CLEAR) CLOUDY A Urine pH (5 - 9) 7.0 Ur Specific Butler (1.001 - 1.035) 1.017 Urine Protein (NEG) NEGATIVE Urine Glucose (UA) (NEG) NEGATIVE Urine Ketones (NEG) NEGATIVE Urine Blood (NEG) NEG Urine Nitrite (NEG) NEG Urine Bilirubin (NEG) NEGATIVE Urine Urobilinogen (NEG mg/dL) NEGATIVE Ur Leukocyte Esterase (NEG) NEG Urine RBC (NONE SEEN #/hpf) 0-2 Urine WBC (NONE SEEN #/hpf) 0-2 Ur Epithelial Cells (RARE - FEW #/HPF) RARE Urine Bacteria (RARE - FEW /HPF) RARE Urine Mucus (NONE SEEN) RARE Diagnosis, Assessment Plan Diagnosis, Assessment Plan Free Text A P: 23 yo IUP 30w5d ua neg will hold on abx for now , she is to f/u with primary ob for ucx and glucose check I advised about the safety of tylenol to take home will gice tylenol 3 here and d/h cat 1 strip at 1109 RPT #:[id number] END OF REPORT [facility] 2023-09-21 10:44:00 [facility] ([facility]) EMERGENCY PROVIDER REPORT REPORT#:[id number] REPORT STATUS: Signed DATE:09/21/23 TIME: 1044 PATIENT: JUSTINE DAHL UNIT #: [id number] ROOM/BED: AGE: 23 SEX: F PCP PHYS: Danuta Roberson MD SERVICE AUTHOR: Justin Soler MD * ALL edits or amendments must be made on the electronic/computer document * LAYLA History Chief complaint: PREG @ 25 WKS LLQ ABDOMINAL PAIN HPI: THIS IS A 23 Y/O AT 25 WKS WHO PRESENTED TO [facility] WITH SUDDEN ONSET OF LLQ ABD PAIN AFTER SHE GOT OUT OF BED YESTERDAY MORNING. SHE IS DIABETIC ON INSULIN FOLLOWED BY DR AGEE. SHE HAS HAD UTI'S IN PAST BUT DENIES ANY DYSURIA history: : 2 Term: 0 Abortus: 1 Living children: 0 Current : EDC: 01/03/24 EGA (weeks/days): 25WEEKS Conditions of : pre-existing diabetes Past medical history: UTI, HAD 14 WKS TWIN LOSS Past surgical history: denies PSH Social history: employed, Medications: Home Medications: Medication Dose/Rte/Freq Days Qty Entered Last Max Daily Dose Reviewed INSULIN LISPRO 2 UNITS SUBQ BID 09/21/23 09/21/23 (HumaLOG KWIKPEN (3mL)) 1014 1017 Strength: 100 UNIT/ML INSULN.PEN INSULIN GLARGINE 4 UNITS SUBQ BID 09/21/23 09/21/23 (BASAGLAR KWIKPEN U-100 1016 1017 (15mL)) Strength: 100 UNIT/ML (3 ML) PEN.INJCTR PNV WITH FE 1 TAB PO DAILY 09/21/23 09/21/23 FUMARATE/FA 1017 1018 () Strength: 27 MG IRON-800 MCG TAB ASPIRIN 81 MG PO DAILY 09/21/23 09/21/23 Strength: 81 MG TAB.CHEW 1017 1018 Allergies Coded Allergies: diphenhydramine (From BENADRYL) (Mild, KIDNEY ISSUE 09/21/23) metoclopramide (From REGLAN) (Mild, AGGRESIVE 09/21/23) Objective General VS: Last Documented: Result Date Time Pulse Ox 97 09/20 1019 Temp 98.1 09/20 1019 Pulse 119 09/20 1019 Resp 18 09/20 1019 B/P Mean 99.0 09/20 1009 B/P 130/78 09/20 1009 Vital Signs Date Temp Pulse Resp B/P B/P Mean Pulse Ox FiO2 09/20 98.1 107-121 18 130/78 99.0 97 PATIENT WEIGHT: Weight (lb): Weight (oz): Weight (kg): 113.820357 Physical Exam HEENT: normocephalic w/o injury Abdomen: gravid, soft, no abnormal tenderness, no guarding, no rebound tenderness, PAIN SHE HAS IS LOCATED ALONG THE LEFT ROUND LIGAMENT AREA AND RADIATES INTO LEFT GROIN AREA Musculoskeletal: no CVA tenderness Uterine activity: Monitor: toco Frequency (description): none FHR evaluation: Baseline: 135 bpm Variability: moderate 6-25 bpm Accelerations: 10 X 10 Decelerations: none FHR category: category 1 Results Findings/Data: Laboratory Tests: 09/20 1012 Urines Urine Color (YELLOW) YELLOW Urine Appearance (CLEAR) CLOUDY A Urine pH (5 - 9) 6.0 Ur Specific Butler (1.001 - 1.035) 1.025 Urine Protein (NEG) NEGATIVE Urine Glucose (UA) (NEG) 2+ H Urine Ketones (NEG) NEGATIVE Urine Blood (NEG) NEG Urine Nitrite (NEG) NEG Urine Bilirubin (NEG) NEGATIVE Urine Urobilinogen (NEG mg/dL) NEGATIVE Ur Leukocyte Esterase (NEG) 1+ H Urine RBC (NONE SEEN #/hpf) 0-2 Urine WBC (NONE SEEN #/hpf) 11-15 H Ur Epithelial Cells (RARE - FEW #/HPF) MANY H Urine Bacteria (RARE - FEW /HPF) RARE Urine Mucus (NONE SEEN) 1+ Diagnosis, Assessment Plan Diagnosis, Assessment Plan Assessment/Impression: PREG @ 25 WKS ROUND LIGAMENT PAIN UTI Plan: discharge home, MACROBID 100MG BID X [address] ROBERSON IN ONE WEEK I BELIEVE SHE NEEDS TO BE ON SUPPRESSIVE THERAPY FOR UTI'S Plan discussed with: patient, parent, nurse at 1105 RPT #:[id number] END OF REPORT [facility] 2023-03-17 18:36:24 Formatting of this n ote might be different from the original. Spoke with the pt in clinic: Please inform pt that promethazine dm can make her drowsy she should take it at night, if it doesn't make her drowsy then she can take it during the day Delaney Khan MA [facility] 2023-03-17 16:23:59 Formatting of this n ote might be different from the original. Please inform pt that promethazine dm can make her drowsy she should take it at night, if it doesn't make her drowsy then she can take it during the day NURSING HOME DIRECTOR-FAMILY MIDLEVEL PROVIDER [facility] 2023-03-17 16:02:04 Formatting of this n ote might be different from the original. Please advise. Delaney Khan MA [facility] 2023-03-17 15:39:52 Formatting of this n ote is different from the original. Pt is needing clarification on her medication for methylPREDNISolone (MEDROL, TATYANA,) 4 mg tablets Oral, SEE-INSTRUCTIONS promethazine-dextromethorphan 6.25-15 mg/5 mL syrup Pt would like to know if she can go to work with those 2 medications. Sintia Whitman [facility] 2023-02-24 13:31:36 Formatting of this n ote might be different from the original. Last Clinic/ER visit: 11/19/2022 (Complete Miscarriage) Primary Symptom: abdominal pain Onset/Duration: 2 days Pain/Severity: 5-/10 Location/Description: constant Associated Symptoms: none Fever: none Hydration: normal Treatment so far: Affect on ADLs: moderately LMP: n/a Pre-Existing Conditions/Immunocompromised: Hx: missed 11/03/2022 Spoke with patient " I am having pain in lower right and left abdomen. 5-6/ 10, it hurts when I push at it and it's not distended or hard. Its been happening for 2 days it worsened today." Patient is wanting appointment for tomorrow patient has to work today. Recommendations: appointment made with provider for tomorrow per patient request. Strong ER precautions informed if worsening of symptoms occur. Patient verbalized understanding and agreed with recommendations. Shirley Wilcox RN [facility] 2023-02-24 13:23:54 Formatting of this n ote might be different from the original. Patient called saying she is having severe pain on the lower part of her abdomen on the left & right side. She said it is so severe that it's causing nausea. Transferred to Shirley for triage. Gaye Chase [facility]
[2025-04-19] MEDS ORDERED: NA CHLORIDE 0.9% 1,000 ML ONE (21:31)
[2025-04-19] MEDS ORDERED: ONDANSETRON 4 MG/2 ML VIAL ONE (21:31)
[2025-04-19] MEDS ORDERED: MORPHINE 4 MG/ML SYR ONE (21:31)
[2025-04-19 21:39] LABS: Absolute Lymphocytes (CBC) 1.6 K/uL (0.7-4.9); Hematocrit 41.2 % (36.0-45.0); Hemoglobin 13.2 g/dL (12.0-15.0); MCH 25.4 pg (27.0-35.0); MCHC 32.0 g/dL (32.0-36.0); MCV 79.2 fL (80-100); MPV 7.8 fL (7.6-11.3); Nucleated RBC Absolute Count 0.0 (0-0); Nucleated Red Blood Cells % 0.0 % (0-0); RBC Red Blood Cell Count 5.20 M/uL (3.86-4.86); White Blood Count 11.10 thou/uL (4.3-10.9)
[2025-04-19 21:58] LABS: ALT/SGPT 20 U/L (13-56); Albumin 3.8 g/dL (3.4-5.0); Albumin/Globulin Ratio 1.0 (1.1-1.8); Alkaline Phosphatase 55 U/L (45-117); Anion Gap 9.3 mEq/L (5.0-15.0); BUN Blood Urea Nitrogen 17 mg/dL (7-18); Globulin 4.0 g/dL (2.3-3.5); Glucose Level 107 mg/dL (74-106); Lipase 23 U/L (13-75); Potassium 4.3 mEq/L (3.5-5.1)
[2025-04-19 22:09] LABS: AST/SGOT < 10 U/L (15-37)
--- NOTE | 2025-04-19 22:22 | RAD REPORT ---
EXAMINATION: US Abdomen Exam Limited CLINICAL HISTORY: [facility] Y vomiting Bed Name: DX2 COMPARISON: None. TECHNIQUE: Limited upper abdominal grayscale and color flow sonographic images. FINDINGS: Gallbladder: Small shadowing gallstones. No wall thickening or pericholecystic fluid. Negative sonogr aphic Benitez's sign. Bile ducts: No intrahepatic or extrahepatic biliary dilatation. Common bile duct measures 3 mm. Liver: Visualized portions of the liver demonstrate normal echogenicity with no suspicious findings. Fluid: No ascites. IMPRESSION: Small gallstones. No other suspicious findings.
--- NOTE | 2025-04-19 22:23 | RAD REPORT ---
EXAMINATION: ONE VIEW CHEST XR CLINICAL INDICATION: Female, 24 years old.,epigastric pain TECHNIQUE: Frontal chest projection is submitted. Examination is limited by patient positioning and t echnique. COMPARISON: 11/23/2012 FINDINGS: The lungs are well inflated and clear. No pneumothorax or sizable effusion. The heart is normal in s ize. Mediastinal contours are unremarkable. IMPRESSION: No acute intrathoracic abnormalities.
[2025-04-19 22:30] LABS: Urine Culture Reflex Order NOT NEEDED; Urine Microscopic Reflex YN ORDER UMIC
--- NOTE | 2025-04-20 01:09 | ER ---
Nurse's Notes [facility] Name: Hafsa Dahl Age: 24 yrs Sex: Female : 2000 Arrival Date: 04/19/2025 Time: 20:39 Bed DX2 Private MD: Diagnosis: Other cholelithiasis without obstruction;Epigastric pain;Nausea with vomiting, unspecified Presentation: 04/19 20:44 Chief complaint: Patient states: ABDOMINAL PAIN AROUND UMBILICAL AREA, NAUSEA AND ha1 VOMITING. 20:44 Coronavirus screen: Client denies travel out of the [place] in the last 14 days. Ebola ha1 Screen: No symptoms or risks identified at this time. Initial Sepsis Screen: Does the patient meet any 2 criteria? No. Patient's initial sepsis screen is negative. Does the patient have a suspected source of infection? No. Patient's initial sepsis screen is negative. Risk Assessment: Do you want to hurt yourself or someone else? Patient reports no desire to harm self or others. Onset of symptoms was April 19, 2025. 20:44 Method Of Arrival: Ambulatory ha1 20:44 Acuity: NORA 3 ha1 Triage Assessment: 20:50 General: Appears uncomfortable, Behavior is calm, cooperative. Pain: Complains of pain ha1 in umbilical area Pain radiates to back Pain currently is 8 out of 10 on a pain scale. Neuro: Level of Consciousness is awake, alert, obeys commands, Oriented to person, place, time, situation. Cardiovascular: Capillary refill < 3 seconds Patient's skin is warm and dry. Respiratory: Airway is patent Respiratory effort is even, unlabored, Respiratory pattern is regular, symmetrical. GI: Abdomen is round non-distended, Reports lower abdominal pain, upper abdominal pain, nausea, vomiting. Historical: - Allergies: 20:50 Reglan; ha1 - PMHx: 20:50 Kidney stone; Asthma; ha1 - Immunization history:: Adult Immunizations up to date. - Infectious Disease History:: Denies. - Social history:: Smoking status: Patient denies any tobacco usage or history of. Screenin:44 [facility] ED Fall Risk Assessment (Adult) History of falling in the last 3 months, ha1 including since admission No falls in past 3 months (0 pts) Confusion or Disorientation No (0 pts) Intoxicated or Sedated No (0 pts) Impaired Gait No (0 pts) Mobility Assist Device Used No (0 pt) Altered Elimination No (0 pt) Score/Fall Risk Level 0 - 2 = Low Risk Oriented to surroundings, Maintained a safe environment, Educated pt \T\ family on fall prevention, incl call for assistance when getting out of bed, Hourly rounding (assess needs \T\ fall precautionary measures) done. Abuse screen: Denies threats or abuse. Denies injuries from another. Nutritional screening: No deficits noted. Tuberculosis screening: No symptoms or risk factors identified. Assessment: 20:44 General: Appears see triage assessment . ha1 22:10 Reassessment: Patient and/or family updated on plan of care and expected duration. Pain ha1 level reassessed. Patient is alert, oriented x 3, equal unlabored respirations, skin warm/dry/pink. pain 4/10 Patient states feeling better. Patient states symptoms have improved. 23:05 Reassessment: Patient and/or family updated on plan of care and expected duration. Pain ha1 level reassessed. Patient is alert, oriented x 3, equal unlabored respirations, skin warm/dry/pink. 04/20 00:00 Reassessment: Patient and/or family updated on plan of care and expected duration. Pain ha1 level reassessed. Patient is alert, oriented x 3, equal unlabored respirations, skin warm/dry/pink. 01:00 Reassessment: Patient and/or family updated on plan of care and expected duration. Pain ha1 level reassessed. Patient is alert, oriented x 3, equal unlabored respirations, skin warm/dry/pink. Patient denies pain at this time. Patient states feeling better. Patient states symptoms have improved. Vital Signs: 04/19 20:44 BP 140 / 97; Pulse 80; Resp 18 S; Temp 98.2(O); Pulse Ox 100% on R/A; Weight 104.33 kg; ha1 Height 5 ft. 4 in. ; Pain 8/10; 22:10 BP 127 / 78; Pulse 67; Resp 18 S; Pulse Ox 99% on R/A; ha1 04/20 01:10 BP 124 / 79; Pulse 68; Resp 20 S; Temp 97.6; Pulse Ox 100% on R/A; ha1 04/19 20:44 Body Mass Index 39.48 (104.33 kg, 162.56 cm) ha1 04/19 20:44 Pain Scale: Adult ha1 ED Course: 04/19 20:43 Patient arrived in ED. gm2 20:43 Fabio Díaz PA-C is PHCP. cp 20:43 Enmanuel Lopez DO is Attending Physician. cp 20:44 Patient has correct armband on for positive identification. Bed in low position. Call ha1 light in reach. Side rails up X 1. Adult w/ patient. 20:44 Arm band placed on right wrist. ha1 20:50 Triage completed. ha1 20:50 Inserted saline lock: 20 gauge in right antecubital area, using aseptic technique. ha1 Blood collected. Flushed with 10 mL NS. 21:29 CBC with Diff Sent. ha1 21:29 CMP Sent. ha1 21:29 Lipase Sent. ha1 22:03 US Abdomen Limited: gallbladder In Process Unspecified. EDMS 22:04 XRAY Chest (1 view) In Process Unspecified. EDMS 23:02 CT Abd/Pelvis - IV Contrast Only In Process Unspecified. EDMS 04/20 01:08 Damien Calvillo MD is Referral Physician. cp 01:44 No provider procedures requiring assistance completed. ha1 06:55 IV discontinued, intact, bleeding controlled, No redness/swelling at site. Pressure ha1 dressing applied. Administered Medications: 04/19 21:36 Drug: Ondansetron IVP 4 mg IVP once; over 2 minutes Route: IVP; Site: right antecubital;ha1 22:05 Follow up: Response: No adverse reaction; Marked relief of symptoms; Nausea is decreasedha1 21:38 Drug: morphine IVP or IV 4 mg IVP once over 4 mins Route: IVP; Infused Over: 4 mins; ha1 Site: right antecubital; 22:05 Follow up: Response: No adverse reaction; Marked relief of symptoms; Pain is decreased; ha1 RASS: Alert and Calm (0) 21:39 Drug: NS 0.9% IV 1000 ml IV at 1 bolus Per protocol; to be given as a bolus over 60 ha1 minutes Route: IV; Rate: 1 bolus; Site: right antecubital; 23:00 Follow up: Response: No adverse reaction; IV Status: Completed infusion ha1 04/20 01:30 Drug: Famotidine PO 20 mg PO once Route: PO; ha1 01:40 Follow up: Response: No adverse reaction; Marked relief of symptoms ha1 01:30 Drug: Ciprofloxacin PO 500 mg PO once Route: PO; ha1 01:40 Follow up: Response: No adverse reaction ha1 Medication: 01:40 VIS not applicable for this client. ha1 Outcome: 01:08 Discharge ordered by . kemar 01:40 Discharged to home ambulatory, with family, ha1 01:40 Condition: stable 01:40 Discharge instructions given to patient, family, Instructed on discharge instructions, ha1 follow up and referral plans. medication usage, Demonstrated understanding of instructions, follow-up care, medications, Prescriptions given X 4, 01:44 Patient left the ED. ha1 Signatures: Dispatcher [employer] EDMS Fabio Díaz PA-C PA-C cp Ayala, Heidy RN RN ha1 Angela Orlando gm2
--- NOTE | 2025-04-20 01:09 | EDPHYS ---
Physician Documentation [facility] Name: Hafsa Dahl Age: 24 yrs Sex: Female : 2000 Arrival Date: 04/19/2025 Time: 20:39 Bed DX2 Private MD: ED Physician Enmanuel Lopez HPI: 04/19 21:15 This 24 yrs old Female presents to ER via Ambulatory with complaints of Abdominal Pain, cp Nausea/Vomiting. 21:15 The patient presents with abdominal pain in the epigastric area, in the upper abdomen. cp 21:15 Associated signs and symptoms: Pertinent positives: nausea and vomiting. cp 21:15 Onset: The symptoms/episode began/occurred today. cp 21:15 The symptoms radiate to back. The symptoms are described as constant. Severity of pain: cp in the emergency department the pain is unchanged despite home interventions. Historical: - Allergies: 20:50 Reglan; ha1 - PMHx: 20:50 Kidney stone; Asthma; ha1 - Immunization history:: Adult Immunizations up to date. - Infectious Disease History:: Denies. - Social history:: Smoking status: Patient denies any tobacco usage or history of. ROS: 21:20 Constitutional: Negative for body aches, chills, fever, cp 21:20 Abdomen/GI: Positive for abdominal pain, nausea and vomiting, of the epigastric area cp and right upper quadrant, Negative for diarrhea, constipation, hematemesis, 21:20 Back: Positive for radiated pain, 21:20 Eyes: Negative for injury, pain, redness, and discharge, cp 21:20 Cardiovascular: Negative for chest pain, edema, palpitations, 21:20 Respiratory: Negative for cough, shortness of breath, wheezing, 21:20 : Negative for urinary symptoms, 21:20 Neuro: Negative for altered mental status, dizziness, headache, syncope, 21:20 All other systems are negative, Exam: 21:25 Constitutional: The patient appears in no acute distress, alert, awake, cp non-diaphoretic, non-toxic, well developed, well nourished, obese, uncomfortable, 21:25 Head/Face: Normocephalic, atraumatic. cp 21:25 Eyes: Periorbital structures: appear normal, Conjunctiva: normal, no exudate, no injection, Sclera: no appreciated abnormality, Lids and lashes: appear normal, bilaterally, 21:25 ENT: External ear(s): are unremarkable, Nose: is normal, Mouth: Lips: moist, Oral mucosa: moist, Posterior pharynx: Airway: no evidence of obstruction, patent, 21:25 Neck: ROM/movement: is normal, is supple, without pain, no range of motions limitations, 21:25 Chest/axilla: Inspection: normal, 21:25 Cardiovascular: Rate: normal, 21:25 Respiratory: the patient does not display signs of respiratory distress, Respirations: normal, no use of accessory muscles, no retractions, labored breathing, is not present, Breath sounds: are clear throughout, no decreased breath sounds, no stridor, no wheezing, 21:25 Abdomen/GI: Inspection: obese Bowel sounds: active, all quadrants, Palpation: soft, in all quadrants, severe abdominal tenderness, in the epigastric area and right upper quadrant, rebound tenderness, is not appreciated, voluntary guarding, is elicited in the epigastric area and right upper quadrant, 21:25 Back: CVA tenderness, is absent, 21:25 Neuro: Orientation: to person, place \T\ time. Mentation: is normal, Vital Signs: 20:44 BP 140 / 97; Pulse 80; Resp 18 S; Temp 98.2(O); Pulse Ox 100% on R/A; Weight 104.33 kg; ha1 Height 5 ft. 4 in. ; Pain 8/10; 22:10 BP 127 / 78; Pulse 67; Resp 18 S; Pulse Ox 99% on R/A; ha1 04/20 01:10 BP 124 / 79; Pulse 68; Resp 20 S; Temp 97.6; Pulse Ox 100% on R/A; ha1 04/19 20:44 Body Mass Index 39.48 (104.33 kg, 162.56 cm) 1 04/19 20:44 Pain Scale: Adult [facility] MDM: 04/19 20:49 Medical Screening Exam initiated cp 04/20 01:08 Data reviewed: vital signs, nurses notes, lab test result(s), radiologic studies, cp ultrasound, and as a result, I will discharge patient. 01:08 Differential diagnosis: cholecystitis, Cholelithiasis, gastritis, non-specific abd cp pain, pancreatitis, Peptic Ulcer Disease, Perf. Duodenal Ulcer, Perf. Gastric Ulcer, Ureterolithiasis, urinary tract infection. I considered the following discharge prescriptions or medication management in the emergency department Medications were administered in the Emergency Department. See MAR. Counseling: I had a detailed discussion with the patient and/or guardian regarding the historical points, exam findings, and any diagnostic results supporting the discharge/admit diagnosis, lab results, results of US with CT results pending. patient would like to be discharged and understands she can return at any time for reevaluation. Response to treatment: the patient's symptoms have mildly improved after treatment, and as a result, I will discharge patient. 04/19 21:09 Order name: CBC with Diff; Complete Time: 22:28 cp 04/19 22:28 Interpretation: Normal except: WBC 11.10; RBC 5.20; MCV 79.2; MCH 25.4; CATARINA% 78.6; LYM% cp 14.2; NEUT A 8.7. 04/19 21:09 Order name: CMP; Complete Time: 22:28 cp 04/19 22:29 Interpretation: Normal except: GLUC 107; AST < 10; GLOB 4.0; A/G 1.0. cp 04/19 21:09 Order name: Lipase; Complete Time: 22:28 cp 04/19 21:09 Order name: Test, Urine; Complete Time: 22:30 cp 04/19 21:09 Order name: UA Rfx Amol Cult if indicated; Complete Time: 01:07 cp 04/19 21:24 Order name: US Abdomen Limited: gallbladder; Complete Time: 22:28 cp 04/19 21:40 Order name: XRAY Chest (1 view); Complete Time: 22:28 cp 04/19 22:30 Order name: CT Abd/Pelvis - IV Contrast Only cp 04/20 04:52 Interpretation: Report reviewed. cp 04/19 21:09 Order name: IV Saline Lock; Complete Time: 21:29 cp 04/19 21:09 Order name: Labs collected and sent; Complete Time: 21:29 cp 04/19 21:24 Order name: NPO; Complete Time: 21:29 cp Administered Medications: 04/19 21:36 Drug: Ondansetron IVP 4 mg IVP once; over 2 minutes Route: IVP; Site: right antecubital;ha1 22:05 Follow up: Response: No adverse reaction; Marked relief of symptoms; Nausea is decreasedha1 21:38 Drug: morphine IVP or IV 4 mg IVP once over 4 mins Route: IVP; Infused Over: 4 mins; ha1 Site: right antecubital; 22:05 Follow up: Response: No adverse reaction; Marked relief of symptoms; Pain is decreased; ha1 RASS: Alert and Calm (0) 21:39 Drug: NS 0.9% IV 1000 ml IV at 1 bolus Per protocol; to be given as a bolus over 60 ha1 minutes Route: IV; Rate: 1 bolus; Site: right antecubital; 23:00 Follow up: Response: No adverse reaction; IV Status: Completed infusion ha1 04/20 01:30 Drug: Famotidine PO 20 mg PO once Route: PO; ha1 01:40 Follow up: Response: No adverse reaction; Marked relief of symptoms ha1 01:30 Drug: Ciprofloxacin PO 500 mg PO once Route: PO; ha1 01:40 Follow up: Response: No adverse reaction ha1 Disposition: 06:03 Co-signature as Attending Physician, Enmanuel LEPE reviewed the patient's care tt7 provided by the Advanced Practice Provider and agree with the diagnosis and treatment plan. Disposition Summary: 04/20/25 01:08 Discharge Ordered Notes: Location: Home cp Problem: new cp Symptoms: have improved cp Condition: Stable cp Diagnosis - Other cholelithiasis without obstruction cp - Epigastric pain cp - Nausea with vomiting, unspecified cp Followup: cp - With: Damien Calvillo MD - When: 2 - 3 days - Reason: Recheck today's complaints Discharge Instructions: - Discharge Summary Sheet cp - Abdominal Pain, Adult cp - Nausea and Vomiting, Adult cp - Cholelithiasis cp Forms: - Medication Reconciliation Form cp - Antibiotic Education cp - Prescription Opioid Use cp - Patient Portal Instructions cp - Leadership Thank You Letter cp Prescriptions: - Pepcid 20 mg Oral Tablet - take 1 tablet ORAL route every 12 hours for 10 days; 20 tablet; Refills: 0, cp Product Selection Permitted - Cipro 500 mg Oral Tablet - take 1 tablet ORAL route every 12 hours for 7 days; 14 tablet; Refills: 0, cp Product Selection Permitted - dicyclomine 20 mg Oral tablet - take 1 tablet ORAL route 4 times per day; 30 tablet; Refills: 0, Product cp Selection Permitted - ondansetron 8 mg Oral Tablet,disintegrating - take 1 tablet ORAL route every 12 hours; 15 tablet; Refills: 0, Product cp Selection Permitted Signatures: Dispatcher [employer] EDMS Fabio Díaz PA-C PA-C cp Ayala, Heidy, RN RN ha1 Enmanuel Lopez DO DO tt7 Corrections: (The following items were deleted from the chart) 04/19 21:10 21:10 CBC+H.LAB.BRZ ordered. EDMS EDMS 21:10 21:10 COMPREHENSIVE METABOLIC PANEL+C.LAB.BRZ ordered. EDMS EDMS 21:10 21:10 LIPASE+C.LAB.BRZ ordered. EDMS EDMS 21:10 21:10 Test, Urine+UC.LAB.BRZ ordered. EDMS EDMS 21:10 21:10 UA Rfx Amol Cult if indicated+U.LAB.BRZ ordered. EDMS EDMS
--- NOTE | 2025-04-20 01:11 | RAD REPORT ---
EXAM DESCRIPTION: Abdomen Pelvis W Contrast CLINICAL HISTORY: upper abdomen pain COMPARISON: Report from abdominal ultrasound dated 04/19/2025. No images available at time of dictati on for direct comparison. TECHNIQUE: CT of the abdomen and pelvis performed following the administration of IV contrast. No ora l contrast. This exam was performed according to our departmental dose-optimization program, which includes automated exposure control, adjustment of the mA and/or kV according to patient size and/or use of iterative reconstruction technique. FINDINGS: Lung Bases: No basilar consolidation. Abdomen: Liver: The liver has normal contour and density. No suspicious mass. Gallbladder: No calcified gallstones. No significant biliary dilatation. Spleen, Pancreas, and Adrenal Glands: The spleen, pancreas, and adrenal glands are unremarkable. Kidneys: No suspicious mass. No urinary tract calculi. No hydronephrosis. Vasculature: The aorta and IVC have normal caliber and position. The portal vein is patent. The pro ximal visceral and renal arteries are patent. Stomach: The stomach and duodenum have normal course. Pelvis: Bowel: No dilated loops of large or small bowel. No acute inflammatory process. Appendix: Normal appendix. Bladder: Urinary bladder is unremarkable. Reproductive: No suspicious mass. Other: No free intraperitoneal air. No free fluid or lymphadenopathy. Bones: No destructive bone lesions identified. IMPRESSION: No acute abnormality on CT of the abdomen and pelvis. Electronically signed by: Lexi Bunch MD 04/20/2025 12:58 AM CDT Due to temporary technical issues with the PACS/everbill reporting system, reports are being anjali d by the in-house radiologist without review as a courtesy to ensure prompt reporting the interpreting radiologist is fully responsible for the content of the report. Transcribed Date/Time: 04/20/2025 1:11 AM
[2025-04-20] MEDS ORDERED: FAMOTIDINE 20 MG TAB ONE (01:35)
[2025-04-20] MEDS ORDERED: CIPROFLOXACIN HCL 500 MG TAB ONE (01:35)
[2025-04-20 08:23] VITALS: BP 140/97; TEMP 98.2; O2SAT 100
== END 2025-04-20 01:44 | disposition home or self-care (01) ==
LOC: ER 20:39
DX: K80.80 Other cholelithiasis without obstruction (principal); R11.2 Nausea with vomiting, unspecified; Z87.442 Personal history of urinary calculi
CPT/HCPCS: 96361; 85025; 81001; 36415; 81025; 83690; 80053; 74177; 71045; 76705; 96375; 96374; 99284; Q9967; J2405; J7030